=== PATIENT | male | born 1950 | race Caucasian/White ===

== ENCOUNTER 2025-07-08 18:05 | Emergency (ER) | payer MEDICARE, OTHER, SELFPAY ==
[2025-07-08 18:08] VITALS: BP 119/72; PULSE 79; RESP 20; TEMP 36.4; O2SAT 99
--- OUTSIDE RECORDS SUMMARY | 2025-07-08 18:12 | XMS_ITS | Encounter Summary ---
Author Organization [facility] Address [address] [place] [address] Care Team Providers Care Online Activist Name Role Phone Melinda Mcgowan MD Primary Care Provider + [phone] Jax Lara MD Unavailable [phone] Renata Lawson MD Unavailable [phone] Mei Bradford MD Unavailable Rodney Buckley OD Unavailable Marlee Herman MD Unavailable [phone] Gabriel Felix MD Unavailable [phone] John Luo MD Unavailable [phone] Florentino Jacobs MD Unavailable [phone] Encounter Details Date Type Department Care Team (Latest Contact Info) Description 05/23/2025 Results Follow-Up [place] [employer] at [address] [place] [id number] Jesus Manuel Sams MA US Groin Pseudo Duplex Right Social History Tobacco Use Types Packs/Day Years Used Date Smoking Tobacco: Every Day Cigarettes 0.7 59.6 Started: 11/22/1965 Passive Smoke Exposure: Current Smokeless Tobacco: Never Alcohol Use Standard Drinks/Week Comments Not Currently 0 (1 standard drink = 0.6 oz pur e alcohol) occassion glass of wine AUDIT-C Answer Date Recorded Q1: How often do you have a drink containing alc ohol? Monthly or less 05/03/2025 Q2: How many drinks containi ng alcohol do you have on a typical day when you are drinking? 1 or 2 05/03/2025 Q3: How often do you have si x or more drinks on one occasion? Never 05/03/2025 PHQ-2 Answer Date Recorded PHQ-2 Total Score (If total score is 3 or more points, staff should administer the PHQ-9) 0 05/03/2025 Personal Safety Answer Date Recorded Have you ever been in or are you currently in a harmful physical or emotional relationship or is someone making you feel afraid or unsafe? 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 Author [facility] No Clair Reynoso, ELYSE Note: Walk, ride motorcycle, golf with minimal to no pain. documented as of this encounter Visit Diagnoses Not on filedocumented in this encounter Care Teams Online Activist Relationship Specialty Start Date End Date Melinda Mcgowan MD PCP - General 02/19/17 Jax Lara MD [address] [place] [address] [address] [place] [id number] Urology 05/15/17 Renata Lawson MD [address] [facility] [address] [facility] [address] [place] [address] Gastroenterology 05/17/17 Mei Bradford MD [address] [facility] [place] [address] Neurology 05/17/17 Rodney Buckley, [place] [address] [place] [address] Optometry 10/26/17 Marlee Herman MD [address] [place] [address] Surgeon Cardiothoracic Surgery 07/04/21 Gabriel Felix MD [address] [place] [address] [address] [place] [address] Anesthesiologist Pain Management 10/14/22 John Luo MD [address] [place] [address] Referring Physician Ophthalmology 05/03/25 Florentino Jacobs MD [address] [place] [address] [address] [place] [address] Consulting Physician Cardiology 05/03/25 documented as of this encounter
--- OUTSIDE RECORDS SUMMARY | 2025-07-08 18:12 | XMS_ITS | Clinical Summary ---
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 Name Role Phone Melinda Mcgowan MD Primary Care Provider Jax Lara MD Unavailable [phone] Renata Lawson MD Unavailable [phone] Mei Bradford MD Unavailable Rodney Buckley OD Unavailable Marlee Herman MD Unavailable [phone] Loan Felix MD Unavailable John Luo MD Unavailable [phone] Namrata Jacobs MD Unavailable [phone] Allergies Active Allergy Reactions Criticality Noted Date Comments Spironolactone Other (See comments) Low 06/24/2018 The bilateral tender enlarged breast with nodules resolved off the Aldactone [id number]-[id number]-Evi moterol Other (See comments) Low 09/16/2023 Does not tolerate steroid inhalers Eplerenone Other (See comments) Low 09/01/2019 Worsening gynecomastia, fatigue, lightheaded after 3 days of taking this Gabapentin Other (See comments) Low 01/04/2023 Weight gain, bad dreams Lisinopril Headache Low 06/24/2018 Waldo Juice Anaphylaxis High Oxycodone Syncope High 10/11/2023 Penicillins Hives Medium Medications tobramycin-dexAME THasone (TOBRADEX) ophthalmic solution SHAKE LIQUID AND INSTILL 1 DROP IN RIGHT EYE FOUR TIMES DAILY. START DROPS AFTER SURGERY Active albuterol 2.5 mg /3 mL (0.083 %) nebulizer solutionIndicatio ns:COPD with asthma (HCC) Take 3 mL (2.5 mg total) by nebulization 4 (four) times a day as needed for wheezing or shortness of breath 75 mL 2 Active albuterol HFA (PROVENTIL HFA,VENTOLIN HFA,PROAIR HFA) 90 mcg/actuation inhalerIndication s:COPD with asthma (HCC),Nicotine use disorder Inhale 2 puffs every 6 (six) hours as needed for wheezing Dispense cheapest brand or generic covered by insurance 1 each Active aspirin 81 mg chewable tabletIndications :Ischemic heart disease due to coronary artery obstruction (HCC) Take 1 tablet (81 mg total) by mouth daily 90 tablet Active atorvastatin (LIPITOR) 80 mg tabletIndications :Ischemic heart disease due to coronary artery obstruction (HCC),Multiple-ty pe hyperlipidemia Take 1 tablet (80 mg total) by mouth nightly 90 tablet Active cholecalciferol (VITAMIN D-3) 2000 unit capsuleIndication s:Nephrotic syndrome Take 1 capsule (2,000 Units total) by mouth daily before breakfast 90 capsule [address] (CYMBALTA) 60 mg capsuleIndication s:Mood disorder,Chronic pain disorder,Lumbar foraminal stenosis Take 1 capsule (60 mg total) by mouth daily 90 capsule Active fexofenadine (LANE) 180 mg tabletIndications :Chronic rhinitis Take 1 tablet (180 mg total) by mouth daily as needed (allergies) Spring until May 25, July until 025 Active fluticasone propionate (FLONASE) 50 mcg/actuation nasal sprayIndications: Chronic rhinitis Administer 2 sprays into each nostril daily 025 Active montelukast (SINGULAIR) 10 mg tabletIndications :Chronic rhinitis Take 1 tablet (10 mg total) by mouth nightly 90 tablet 3 025 Active tirzepatide (Mounjaro) 10 mg/0.5 mL pen injector injectionIndicati ons:Type 2 diabetes mellitus with stage 3a chronic kidney disease, without long-term current use of insulin ([facility]) Inject 0.5 mL (10 mg total) under the skin every 7 days 6 mL 2 025 Active isosorbide mononitrate ER (IMDUR) 30 mg 24 hr tabletIndications :Ischemic heart disease due to coronary artery obstruction (HCC) Take 1 tablet (30 mg total) by mouth daily 30 tablet 1 025 2024 Active clopidogreL (PLAVIX) 75 mg tabletIndications :Ischemic heart disease due to coronary artery obstruction (HCC) Take 1 tablet (75 mg total) by mouth daily 90 tablet 3 025 Active ezetimibe (ZETIA) 10 mg tabletIndications :Ischemic heart disease due to coronary artery obstruction (HCC),Multiple-ty pe hyperlipidemia Take 1 tablet (10 mg total) by mouth daily 90 tablet 3 025 Active eplerenone (INSPRA) 25 mg tabletIndications :Ischemic heart disease due to coronary artery obstruction (HCC),Nephrotic syndrome Take 1 tablet (25 mg total) by mouth daily 90 tablet 1 025 Active famotidine (PEPCID) 20 mg tabletIndications :Chronic GERD TAKE 1 TABLET TWICE A DAY 180 tablet 025 Active carvediloL (COREG) 12.5 mg tabletIndications :Type 2 diabetes mellitus with stage 3a chronic kidney disease, without long-term current use of insulin (HCC),Nephrotic syndrome,Ischemic heart disease due to coronary artery obstruction (HCC) TAKE 1 TABLET TWICE A DAY WITH MEALS (DOSE DECREASE) 180 tablet 025 Active famotidine (PEPCID) 20 mg tabletIndications :Chronic GERD Take 1 tablet (20 mg total) by mouth 2 (two) times a day 180 tablet 3 025 2024 Discontinued carvediloL (COREG) 12.5 mg tabletIndications :Type 2 diabetes mellitus with stage 3a chronic kidney disease, without long-term current use of insulin (HCC),Nephrotic syndrome,Ischemic heart disease due to coronary artery obstruction (HCC) Take 0.5 tablets (6.25 mg total) by mouth 2 (two) times a day with meals 90 tablet 3 025 2024 Discontinued Active Problems Problem Noted Date Diagnosed Date Hematoma of injection site 06/07/2025 Hospital discharge follow-up 05/08/2025 Assessment & Plan (05/08/2025 9:53 AM CDT): Hospitalized at [facility] 05/03/25-05/04/25 for unstable angina Cardiology consulted (following outpatient) Hx: s/p CABG x 2 05/03/25: cardiac catheterization , EKG 05/04/25: transthoracic echo Medication list updated for accuracy Outpatient follow ups w/ consulting teams scheduled Aortic stenosis 05/03/2025 Overview (05/03/2025): Found on heart catheterization by Dr. Jacobs for unstable angina 05/03/2025 Aortic stenosis with 25-30 mm peak to peak gradient across the valve. Severe limited leaflet mobility by ascending aortography Abdominal aortography showed normal size iliac vessels with heavy calcification abdominal aorta Mynx to right groin Plan His grafts remain patent. There was no high-grade lesions to warrant intervention His aortic stenosis could have worsened. We will obtain echo in a.m. Chronic pain disorder 10/12/2024 Dysphagia 02/19/2023 Assessment & Plan (08/12/2023 11:54 AM CDT): Continue Pepcid 20 mg twice daily 50 ounces of caffeine free and soda free fluid daily Use humidifier on Max setting on CPAP Modified barium swallow study, if negative will place referral to GI for EGD Assessment & Plan (02/19/2023 2:40 PM CDT): Likely related to lymphadenitis, see plan above. Type 2 diabetes mellitus with chronic kidney dis ease 01/04/2023 Assessment & Plan (01/18/2024 2:16 PM WIRE WEAVER CLOTH): Last HbA1c in August 5.6. no acute symptoms or findings on exam. Down a total of 23 lbs since starting mounjaro. Due to sporadic abdominal cramping will refill at 7.5mg dose. Continue current regimen and heart healthy diet/exercise. Keep follow and repeat labs in 2 months. Assessment & Plan (02/19/2023 2:20 PM CDT): Tolerating 2.5 mg mounjaro dosing with no issues. Admits decrease in cravings. Has lost 4 lbs in the last month. No acute findings on exam. Will increase to 0.5mg dose. Continue low carb diet. Follow in 1 month. Assessment & Plan (02/01/2023 12:36 PM CDT): Presents today for mounjaro teaching and initiation. Confirmed understanding using teach back method. HbA1c 6.9, no strict exercise routine. Attempting to follow low carb diet. No acute findings on exam. BMI up to 42.1. Educated on low carb diet and portion control. Follow up 1month. S/P CABG x 2 09/07/2022 Lumbar foraminal stenosis 05/19/2022 Overview (08/25/2022): MRI lumbar scan by [facility] May 2022 (+) facet arthropathy right L4-5, left L5-S1 L4-5: Annular disc bulge with left eccentric central-left subarticular disc protrusion with tiny annular fissure. Bilateral hypertrophic facet arthropathy, noting slight fluid in the left facet joint suggestive of facet synovitis. Moderate right and mild left neural foraminal stenosis, noting combination of inferior pedicular surface, disc, and arthropathic facet contact with the exiting right and slight disc contact with the exiting left L4 nerve roots. L5-S1: Annular disc bulge. Bilateral hypertrophic facet arthropathy, noting slight fluid in the left facet joint suggestive of facet synovitis. Mild-moderate left and mild right neural foraminal stenosis, noting combination of inferior pedicular surface, disc, and arthropathic facet variable contact with the exiting bilateral L5 nerve roots. 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 06/04/2022 12:43 PM Oscar Hilton M.D. Stage 3a chronic kidney disease 06/26/2021 Assessment & Plan (07/03/2021 5:13 PM CDT): MAIN on CKD 3 Cr today 1.5 -continue lasix 40mg IV bid -Dr. Herman ordered metolazone 10mg x 1 today -Avoid nephrotoxins as able -Daily weights -Monitor intake and output -Daily labs Assessment & Plan (07/02/2021 5:00 PM CDT): MAIN on CKD 3 Cr today 1.58 -start lasix 40mg IV bid -Avoid nephrotoxins as able -Daily weights -Monitor intake and output -Daily labs Assessment & Plan (06/27/2021 10:09 PM CDT): -Admission CMP -Avoid nephrotoxins as able -Daily weights -Monitor intake and output -Daily labs Nephrotic syndrome 05/03/2019 Overview (07/14/2019): Biopsy (+) for membranous GN followed by FELIBERTO Vaca Assessment & Plan (01/03/2020 9:50 AM WIRE WEAVER CLOTH): Patient has been follow with nephrology and had recent visit at which time his lasix dose was increased and eplerenone added. We are awaiting recent labs from their office. Mood disorder 12/23/2017 Assessment & Plan (01/03/2020 10:58 AM WIRE WEAVER CLOTH): He remains on cymbalta, but states that he still suffers with issues of depression. Suggested with patient the addition of Wellbutrin, but he has taken in the pst and not tolerated. He wishes to discuss more and his upcoming follow up with Dr. Mcgowan. Ischemic heart disease due to coronary artery ob struction 10/23/2017 Overview (07/16/2021): Uneventful hospital course after 06/29/2021 for CABG x 2 (COVARRUBIAS to LAD, SVG to OM) by Dr. Herman. Cardiac catheterization on 06/27/21 before heart bypass = RCA with diffuse 25% proximal stenosis followed by 40% focal mid lesion, left mainvery tight 95% to 99% distal stenosis with diffuse stenosis of 50%, LAD with diffuse 25% mid stenosis, 40% mid circumflex, and EF 60% to 65%. Unstable angina June 2021 [facility] evaluation (+) stress,coronary angiogram today 06/27/2021, which showed main main left disease. Transfered to [facility] for possible CABG. Stress test (-) November 25, 2017 TECHNIQUE: Intravenous Lexiscan was administered by cardiology to achieve stress. 10.7 mCi technetium 99m Myoview was injected at rest, followed by 31.8 mCi injected at peak stress. FINDINGS: There is a normal distribution of radiopharmaceutical activity throughout the left ventricular myocardium on both rest and stress images. Gated images demonstrate normal ventricular wall thickening. The left ventricular ejection fraction is 73%. Impression 1. NORMAL REST AND STRESS LEFT VENTRICULAR PERFUSION. 2. NORMAL LEFT VENTRICULAR WALL MOTION. 3. NORMAL LEFT VENTRICULAR EJECTION FRACTION. Electronically signed by: Adams Meadows M.D. Last Resulted: 11/25/17 13:03 ASVD Is Confirmed on CT abdomen during evaluation of abdominal pain February 2017 IMPRESSION: 1. 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 2. FATTY INFILTRATION OF THE LIVER. 3. DIFFUSE VASCULAR CALCIFICATION. 4. SIGMOID DIVERTICULOSIS. Interpreting Physician: DR BURAK RIVAS M.D. Read on: Mar 03 2017 2:53P Transcribed by: aamir On: Mar 03 2017 7:58P Assessment & Plan (01/18/2024 2:20 PM WIRE WEAVER CLOTH): BP stable in office today on current therapy. No acute findings on exam. ECHO from 10/2023 in chart. Labs show stable CKD. Continue current regimen and low salt diet. Hx of adenomatous colonic polyps 06/14/2017 Overview (06/14/2017): [facility]: EGD with acid reflux erosive gastritis May 2017 [facility]: Adenomatous colon polyps (+) 2001, (+) 2006, (-) [address] Lawson for colonoscopy May 2017 History of stroke without residual deficits 04/23 Overview (05/15/2017): January 2014 lacunar stroke. 40-60% carotid stenosis. Multiple cardiac risk factors addressed once again at that time. History of prostate cancer 05/15/2017 Overview (10/23/2017): Diagnosis December 2014 with Adams score 7 T2 PN 0 M 0 stage II INDICATION FOR PROCEDURE: The patient is a 65-year-old gentleman who has organ- confined prostate cancer, a [facility] 3+4 adenocarcinoma of the prostate in 4 of 12 biopsy cores. He was taken to the operating room for robotic prostatectomy with pelvic lymph node dissection. PROCEDURE PERFORMED: 1. Robotic-assisted laparoscopic prostatectomy. 2. Robotic-assisted laparoscopic bilateral pelvic lymphadenectomy. 3. Robotic assisted laparoscopic Dr. Igor Chowdary. History of kidney stones 05/15/2017 Overview (05/15/2017): Diagnosed in emergency room July 2014 Chronic GERD 05/15/2017 Overview (10/23/2017): [facility]: EGD with acid reflux erosive gastritis May 2017 [facility]: Adenomatous colon polyps (+) 2001, (+) 2006, (-) 2008 Obstructive sleep apnea 04/07/2014 Overview (01/28/2023): (+) VÍCTOR and nocturnal hypoxemia confirmed January 2023 referred back to sleep Medicine, not compliant with his CPAP Impression: 1. Reduced sleep efficiency. 2. Severe obstructive sleep apnea syndrome. 3. 34.3 minutes of oxygen saturation less than 88% documented. 4.Consider Positive Airway Pressure (PAP) devices such as continuous PAP (CPAP), auto-adjusting PAP (APAP), and bi-level PAP (Bi-PAP). 5. CPAP titration to determine optimal pressure required to alleviate sleep disordered breathing 6. Sleep hygiene should be reviewed to assess factors that may improve sleep quality. 7. Weight management and regular exercise should be initiated or continued 8. Avoid alcohol sedatives and other FIXING MACHINE OPERATOR depression that may worsen sleep apnea and disrupt normal sleep architecture 9. Patients with sleep apnea may have significant daytime hypersomnolence. If that is the case, driving or handling heavy machinery should be avoided until the apnea and excessive sleepiness have resolved. Referred to Dr. Bradford 04/2017-- never went to the appointment CPAP titration study 2013 confirmed BiPAP ..PLAN: 1) Nasal BiPAP at a pressure of 21/16 cm of water. During this titration, thefollowing equipment was used - medium Quattro full face mask and heatedhumidity. 2) Close clinical followup is needed to ensure treatment compliance andremission of daytime impairment. 3) The patient has periodic limb movements, but did not cause significant sleep fragmentation. Treated by Dr. Reina. Diagnosed in 2005, refused care. The baseline oxygen saturation was 94.4% with the lowest oxygen saturation documented at 84%. During the current study moderate obstructive sleep apnea syndrome was documented with an apnea/hypopnea index of 18.6. IMPRESSION AND PLAN: This overnight polysomnogram demonstrates evidence of moderate obstructive sleep apnea syndrome. In addition, there is evidence of periodic limb movement disorder. It is recommended that the patient undergo a repeat study with a CPAP titration. If the patient remains symptomatic and still has evidence of periodic limb movement disorder on the repeat study, he may benefit from specific treatment to manage the periodic limb movements. Ashlee Rudolph M.D. Assessment & Plan (07/03/2021 5:11 PM CDT): -patient diagnosed with moderate VÍCTOR in 2005 per [facility] records with CPAP titration in 2013 -patient currently does not use CPAP -VÍTCOR precautions Assessment & Plan (07/01/2021 10:00 AM CDT): -patient diagnosed with moderate VÍCTOR in 2005 per [facility] records with CPAP titration in 2013 -patient currently does not use CPAP -VÍCTOR precautions Assessment & Plan (06/28/2021 10:31 AM CDT): -patient diagnosed with moderate VÍCTOR in 2005 per [facility] records with CPAP titration in 2013 -patient currently does not use CPAP COPD with asthma 04/07/2014 Overview (08/21/2018): Images from the original note were not included. Spirometry 2012 Assessment & Plan (07/03/2021 5:11 PM CDT): -Takes Advair Diskus and PRN albuterol inhaler at home -Continue Albuterol MDI -Continue aggressive pulmonary toilet -add mucinex for productive cough (clear phlegm) -continue diuresis Assessment & Plan (07/02/2021 4:57 PM CDT): -Takes Advair Diskus and PRN albuterol inhaler at home -Continue Albuterol MDI -Continue aggressive pulmonary toilet -add mucinex for productive cough (clear phlegm) -IV lasix Assessment & Plan (06/27/2021 9:59 PM CDT): -Takes Advair Diskus and PRN albuterol inhaler at home -Continue home meds or formulary alternative -PFTs ordered Assessment & Plan (01/03/2020 9:47 AM WIRE WEAVER CLOTH): With acute exacerbation in setting of most likely viral illness. We will do CXR to r/o any acute cardiopulmonary process. He was encouraged to begin using his nebulizer routinely every 4-6 hours. He was also sent rx for prednisone which he will complete. He was instructed if he should have worsening symptoms he would need to go to the ER for further evaluation Nicotine use disorder 04/07/2014 Overview (12/31/2021): JUNE [address] SCAN DUE JUNE 2022 2. Sub-6 mm pulmonary nodules within the right middle and lower lobes. Per Fleischner guidelines, if the patient is at low risk for lung cancer, no follow-up imaging is needed. If the patient is at high risk for lung cancer, follow-up CT in 12 months could be performed. Assessment & Plan (02/01/2023 12:43 PM CDT): Not ready to quit at this time. Taking Wellbutrin with no decrease in cravings. Intermittent wheezing on exam. Keep yearly chest CT screenings and follows with pulm. Assessment & Plan (07/03/2021 5:12 PM CDT): Continue abstinence Offer cessation counseling Nicotine patch Assessment & Plan (07/02/2021 5:01 PM CDT): Continue abstinence Offer cessation counseling Nicotine patch Assessment & Plan (06/28/2021 10:29 AM CDT): -Patient requesting nicotine patch -Nicotine patch ordered Assessment & Plan (01/03/2020 9:46 AM WIRE WEAVER CLOTH): Cessation encouraged. Chronic rhinitis 04/07/2014 Overview (02/26/2017): Rhinitis Multiple-type hyperlipidemia 04/07/2014 Overview (02/26/2017): Hyperlipemia, mixed Assessment & Plan (07/03/2021 5:11 PM CDT): POA -Continue home Atorvastatin -Low fat diet Assessment & Plan (07/01/2021 9:59 AM CDT): POA -Continue home Atorvastatin -Low fat diet Assessment & Plan (06/27/2021 9:54 PM CDT): -Lipid panel on admission -Continue home atorvastatin Resolved Problems Problem Noted Date Diagnosed Date Resolved Date Unstable angina 05/03/2025 06/07/2025 Assessment & Plan (05/08/2025 1:20 PM CDT): Acute on chronic, stable Denies pain today No change in medications; list updated for accuracy Follows w/ Cardiology; next appointment 06/06 Goal: per cardiology Pseudofolliculitis 02/26/2025 Assessment & Plan (02/26/2025 2:15 PM CDT): Acute, stable Differential diagnoses: Pseudofolliculitis v folliculitis v abscess No ingrown hair on exam, no fluctuance with palpation on exam Current meds: None Today's Plan: No medications initiated today; no evidence of infectious process on exam Encourage patient to continue to shower daily, keep scalp clean and dry Defer topical antibiotic as there is no infectious process at this time Lab/imaging orders today: None Call in the interim with any concerns Encounter for colonoscopy du e to history of adenomatous colonic polyps 09/22/2024 05/03/2025 Annual physical exam 09/22/2024 025 Class 1 obesity with alveola r hypoventilation, serious comorbidity, and body mass index (BMI) of 33.0 to 33.9 in adult 01/18/2024 05/03/2025 Submental lymphadenitis 02/19/202304/23 Assessment & Plan (02/19/2023 2:40 PM CDT): Symptoms for 2 days. Afebrile. Mild difficulty swallowing, no choking or drooling. One single node on left submental area, soft mobile, mildly tender. Mild gingivitis, no other abnormalities on exam. Likely dental abscess. Rxd Clindamycin as directed. Mouthwash twice daily. Tylenol/ibuprofen as needed. Call if symptoms not gone by end of clinda dosing. Lumbar radiculopathy 02/05/2023 023 New onset type 2 diabetes mellitus 01/04/2023 02/01/2023 jail (current) use of opiate analgesic 10/20/2022 05/11/2023 COPD with acute exacerbation 09/04/2022 05/11/2023 Assessment & Plan (03/24/2023 1:16 PM CDT): Runny nose and cough for 3 weeks. Tested negative for COVID at home. Had CXR and blood work done before visit today. CXR was unremarkable. Dr. Meier started him on Breztri on 01/26/23 and patient states, it's not helping at all. using albuterol nebs nightly. Lungs clear on exam today, upper airway wheezing noted especially with cough. No other acute exam findings. Rxd Prednisone burst as directed. Continue mucinex. Push fluids. Assessment & Plan (09/07/2022 10:57 AM CDT): Acute problem, improving with steroids and antibiotics, CXR on 09/04 unremarkable Patient reports improving shortness of breath, coughing, wheezing Physical examination significant for continued mild postnasal drip, mild pharyngeal erythema, bilateral serous middle ear effusions, and scattered rhonchi - physical examination improved from visit on 09/04 - no other acute findings on examination (aside from examination findings pertaining to eyelid shingles) Orders for AMS STAFF to arrange Please refer to automation and controls instructor for shingles of the eyelid Orders for Luis Fernando Taylor to arrange Continue oral and topical eye antibiotics as prescribed Continue steroids as prescribed Continue valacyclovir as prescribed Follow up with ophthalmology for shingles of the eyelid Follow up as scheduled with Dr. Mcgowan or sooner if necessary Assessment & Plan (09/04/2022 4:36 PM CDT): Acute problem, times 3-4 days Increased shortness of breath, coughing, sputum production - increased used of albuterol inhaler and as needed nebulizer Physical examination significant for nasal congestion, rhinorrhea, postnasal drip, mild pharyngeal erythema, bilateral serous middle ear effusions, scattered rhonchi, scattered expiratory wheezes Vital signs stable Orders for AMS STAFF to arrange Schedule follow up in office with me on Wednesday at 1000 for follow up on preseptal cellulitis and COPD exacerbation Orders for Luis Fernando Taylor to arrange Continue Mucinex Start levofloxacin as ordered - complete the entire course Start prednisone as ordered complete entire course Can take acetaminophen for pain Continue inhalers and nebulizer as ordered Monitor for achilles tendon pain/heel pain as this can occur as a side effect of the antibiotics Go to ER on Wednesday if eye is not improving OR if vision in right eye starts worsening OR if right eye movements become restricted - patient verbalized understanding Follow up in office on Wednesday for re-evaluation Shingles of eyelid 09/04/2022 3 Assessment & Plan (09/07/2022 10:38 AM CDT): Acute problem since the evening of 09/02 or the morning of 09/03 Initially thought to be preseptal cellulitis due to early presentation of disease - patient was prescribed oral levofloxacin 500mg PO daily times 10 day Patient presented to ER on Wednesday, 09/06 per provider recommendation if not improving with antibiotics - patient presented with vesicular rash on right protestant with complaints of scalp pain in addition to right eyelid swelling, also had new onset yellow discharge from right eye - diagnosed with herpes zoster and bacterial conjunctivitis and given valacyclovir and ophthalmic tobramycin prescriptions Physical examination significant for continued erythema and swelling of right upper/lower eyelids, mild conjunctival injection, scabbed lesion on right protestant - no other acute findings on examination Orders for AMS STAFF to arrange Please refer to automation and controls instructor for shingles of the eyelid Orders for Luis Fernando Taylor to arrange Continue oral and topical eye antibiotics as prescribed Continue steroids as prescribed Continue valacyclovir as prescribed Follow up with ophthalmology for shingles of the eyelid Follow up as scheduled with Dr. Mcgowan or sooner if necessary Assessment & Plan (09/04/2022 4:36 PM CDT): Acute problem, present since the evening of 09/02 or the morning of 09/03 Patient reports mild redness and swelling of upper and lower eyelid of the right eye (upper > lower) - denies vision changes, pain with eye movement, exudate, fever, chills Physical examination significant for mild erythema of upper/lower eyelids of right eye, swelling of upper/lower eyelids of right eye (upper > lower), EOM intact, PERRLA, no conjunctival involvement - no other acute findings on examination Discussed the importance of taking antibiotics as soon as possible and as prescribed to treat infection as worsening of the infection due to delayed treatment could lead to rapid involvement of deeper intracranial structures and significant complications - patient verbalized understanding Orders for AMS STAFF to arrange Schedule follow up in office with me on Wednesday at 1000 for follow up on preseptal cellulitis and COPD exacerbation Orders for Luis Fernando Taylor to arrange Continue Mucinex Start levofloxacin as ordered - complete the entire course Start prednisone as ordered complete entire course Can take acetaminophen for pain Continue inhalers and nebulizer as ordered Monitor for achilles tendon pain/heel pain as this can occur as a side effect of the antibiotics Go to ER on Wednesday if eye is not improving OR if vision in right eye starts worsening OR if eye movements become restricted - patient verbalized understanding Follow up in office on Wednesday for re-evaluation Hyperkalemia 08/05/2022 08/25/2022 Assessment & Plan (08/05/2022 3:00 PM CDT): Potassium upon hospital dc on 07/27/22 was 5.1. will repeat BMP today. Hypertensive urgency 07/27/2022 022 Acute on chronic diastolic heart failure 07/27/2022 08/25/2022 Assessment & Plan (08/05/2022 2:59 PM CDT): Presents for hospital follow up after NSTEMI 2 weeks ago. Intermittent dizziness reported after starting Isosorbide. BPs at home running 150-170s over 90-100s. BP today stable at 128/84. Denies further chest pain, palpitations, or worsening SOB (reports intermittent wheezing is normal with his COPD). Continue Coreg 25mg BID, Inspra 37.5mg daily, and Imdur 30mg daily as ordered. Continue to monitor BP at home and record daily around midday. Keep follow ups as scheduled with Dr. mcgowan on 08/25/22 annd with Cardiology on 09/07/22. Call with any changes or concerns. 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 05/15/2022 05/11/2023 Carotid artery disease 06/28/202107/16 Assessment & Plan (07/03/2021 5:10 PM CDT): -Patient had carotid dopplers in 2013 showing LICA 64% and ALICJA 44% --continue ASA, Statin Assessment & Plan (07/01/2021 10:05 AM CDT): -Patient had carotid dopplers in 2013 showing LICA 64% and ALICJA 44% --continue ASA, Statin Assessment & Plan (06/28/2021 10:32 AM CDT): -Patient had carotid dopplers in 2013 showing LICA 64% and ALICJA 44% -carotid dopplers ordered Coronary artery disease invo lving [place] coronary artery 06/27/2021 07/14/2021 Assessment & Plan (07/03/2021 5:14 PM CDT): -s/p CABG x2 -Continue aspirin and atorvastatin -increase coreg -Monitor on telemetry -wires out -continue IV lasix + 1 dose of metolazone 10mg today -PT/OT -bowel regimen -SQH -discharge planning Assessment & Plan (07/02/2021 4:58 PM CDT): -s/p CABG x2 -Continue aspirin, atorvastatin, and carvedilol -Monitor on telemetry -pull wires today -start Lasix IV 40mg IV BID + K -PT/OT -bowel regimen -SQH -discharge planning Assessment & Plan (06/28/2021 10:35 AM CDT): -Stress test 06/26 - abnormal myocardial perfusion study, reversible 15% mild to moderate severity anteroseptal and apical defect indicating ischemia in the LAD distrubution, another 10% in this distribution appears fixed and may be due to infarction or hibernating myocardium, mild hypokinesis and incomplete thickening at the anteroseptal wall, normal EF -Cardiac cath 06/27 - RCA with diffuse 25% proximal stenosis followed by 40% focal mid lesion, left main with diffuse stenosis of 50% with a very tight 95% to 99% distal stenosis, LAD with diffuse 25% mid stenosis, 40% mid circumflex, EF 60% to 65% -troponin - negative -Continue aspirin, atorvastatin, and carvedilol -Continue heparin gtt -PRN nitro tabs -Monitor on telemetry -Work up for CABG including carotid dopplers, vein mapping, PFTs, TTE here, CT CAP w/o Obesity (BMI 30-39.9) 06/27/20212024 Assessment & Plan (07/03/2021 5:10 PM CDT): Admission BMI 38.31 Bariatric equipment as necessary Low fat diet Assessment & Plan (07/01/2021 10:04 AM CDT): Admission BMI 38.31 Bariatric equipment as necessary Low fat diet Assessment & Plan (06/28/2021 10:33 AM CDT): -Admission BMI 38.31 -Bariatric equipment as necessary -low fat diet Acute chest pain 06/25/2021 08/25/2022 Wheezing 11/18/2020 07/16/2021 Assessment & Plan (11/18/2020 9: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 He states that he does get this way usually once a year within the time frame from Sep to Dec. He has been using his inhalers and his nebs as prescribed. Scattered exp wheezes heard throughout lung ennis, with NO lower extremity edema noted today. We will get a chest x-ray today to R/O infections process or fluid overload. He will start prednisone today and do 40mg x 2 days, then 20mg for 2 days, then 10mg x 2 days, then stop. He will f/u with me in 7-10 days. Palpitations 10/21/2020 08/25/2022 Fever and chills 01/03/2020 04/30/2020 Assessment & Plan (01/03/2020 9:53 AM WIRE WEAVER CLOTH): Patient presents with c/o subjective fever and body aches. He will have flu swab done. He was encouraged to rest, increase his fluids and use tylenol for pain or fevers. He is to call or go to ED with worsening or persistent symptoms. Gynecomastia, male 01/03/2020 0 Assessment & Plan (01/03/2020 9:52 AM WIRE WEAVER CLOTH): Chronic. Symptoms have not changed since the addition of eplerenone. He has had imaging in the past that was benign. Will monitor ED (erectile dysfunction) of organic origin 10/23/2017 08/25/2022 Stasis dermatitis of both legs 06/19/2017 10/23/2017 Lower abdominal pain 06/14/2017 017 Overview (06/14/2017): IMPRESSION: 1. 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 2. FATTY INFILTRATION OF THE LIVER. 3. DIFFUSE VASCULAR CALCIFICATION. 4. SIGMOID DIVERTICULOSIS. Interpreting Physician: DR BURAK RIVAS M.D. Read on: Mar 03 2017 2:53P Transcribed by: aamir On: Mar 03 2017 7:58P Karadaghy: EGD with acid reflux erosive gastritis May 2017 Allendorph: Adenomatous colon polyps (+) 2001, (+) 2005, (-) 2008 Chronic pansinusitis 05/15/2017 017 Overview (05/15/2017): Condition confirmed on head CT scan April 02, 2014 at [facility] during an evaluation for stroke Periodontal disease 04/07/2014 08/25/20 22 Overview (02/26/2017): Periodontal disease Chronic right-sided low back pain with right-sided sciatica 05/11/2023 Assessment & Plan (02/01/2023 12:40 PM CDT): Chronic problem, uncontrolled with pain mgt interventions. Currently taking Mehama PRN and duloxetine BID with no relief. Failed gabapentin. R SI joint tenderness but negative SLR. Will trial Tizanidine as needed. Recommended aspercreme with lidocaine use. Gentle stretching encouraged. Heat/ice as tolerated. Follow 1 month. Assessment & Plan (08/05/2022 3:05 PM CDT): Presents for hospital follow up from [facility] c/o continued R leg pain. Patient does not believe pain is related to lumbar bulging disc. Is seeing Dr. Felix for pain management and receiving absolutely none relief from spinal injections. He wants to give Dr. Felix one more try at his appointment on 09/02/22 but if he is unwilling to change treatment course patient requesting referral to Orthopedics. Mild weakness with R leg noted on exam, no acute findings. Patient will call office if he wants to persue Ortho referral. Follow up with Dr. mcgowan as scheduled in 2 weeks. Assessment & Plan (05/08/2022 7:53 AM CDT): Patient presents with low back pain that is radiating to the rt thigh. Pain has been progressing over the last 1-2 weeks and limiting his ability to be mobile. He was seen in the ER this week and CT of the lumbar spine multilevel degenerative changes. On exam he has tenderness with palpation of lower back into buttock and pain with straight leg raises. There was mention on CT of 60-70% stenosis of bilateral femoral arteries. This may be contributing to pain, he however, has palpable strong distal pulses. Therefore, most likely pain is d/t musculoskeletal etiology. We will begin muscle relaxer and tramadol. Encouraged PT but patient declined. We will refer to pain management as well. Will follow up in 2 weeks or sooner if needed. If persistent symptoms despite pain management will refer to Dr. Jacobs to evaluate for PAD as cause. Encounters Date Type Department Care Team Description 06/27/2025 Results Follow-Up [place] [facility] at [facility] [address] [place] [address] Jesus [address] Sams MA CT Abdomen Pelvis WO Contrast 06/20/2025 10:12 AM CDT - 06/20/2025 11:59 PM CDT Hospital Encounter [address] [address] Enlarged lymph nodes Discharge Disposition: Discharge to home or self care 06/19/2025 Telephone [facility] [address] [place] [address] [address] [place] [address] Melinda Mcgowan MD Dental Clearance 06/19/2025 Telephone [facility] [address] [place] [address] Julian Mensah 06/07/2025 11:30 AM CDT Office Visit [facility] [address] [place] [address] Flora Garcia NP Hematoma of injection site, initial encounter (Primary Dx); Type 2 diabetes mellitus with stage 3a chronic kidney disease, without long-term current use of insulin (HCC) 06/07/2025 11:00 AM CDT Office Visit [facility] [place] [address] [place] [phone] Robby Meier MD Centrilobular emphysema (HCC) (Primary Dx); Nicotine dependence, cigarettes, uncomplicated; VÍCTOR (obstructive sleep apnea); Nonrheumatic aortic valve stenosis 06/06/2025 9:45 AM CDT Office Visit [place] [facility] at [address] [place] [phone] Sara Mendoza NP Ischemic heart disease due to coronary artery obstruction (HCC) (Primary Dx); Aortic valve stenosis, etiology of cardiac valve disease unspecified; Primary hypertension; Multiple-type hyperlipidemia; Tobacco dependence 06/06/2025 Telephone [facility] [address] [place] [address] Melinda Mcgowan MD 05/23/2025 Results Follow-Up [place] [facility] at [address] [place] [phone] Jesus Manuel Sams MA US Groin Pseudo Duplex Right 05/23/2025 Orders Only [place] [facility] at [address] [place] [phone] Namrata Jacobs MD Lymphadenopathy; Enlarged lymph nodes 05/21/2025 Telephone [facility] [address] [place] [address] Melinda Mcgowan MD 05/14/2025 Telephone [facility] [address] [place] [address] Magali Finley RN 05/13/2025 Orders Only [facility] [address] [place] [address] Melinda Mcgowan MD COPD with asthma (HCC); Nicotine use disorder; Ischemic heart disease due to coronary artery obstruction (HCC); Multiple-type hyperlipidemia; Type 2 diabetes mellitus with stage 3a chronic kidney disease, without long-term current use of insulin (HCC); Nephrotic syndrome; Mood disorder; Chronic pain disorder; Lumbar foraminal stenosis; Chronic GERD; Chronic rhinitis 05/10/2025 12:43 PM CDT - 05/10/2025 11:59 PM CDT Hospital Encounter [facility] [address] [place] [address] Pain in right leg; Hematoma Discharge Disposition: Discharge to home or self care 05/10/2025 Orders Only [place] [facility] at [facility] [address] [place] [phone] Michael Velasquez NP Pain in right leg (Primary Dx); Hematoma 05/09/2025 Telephone [facility] [address] [place] [address] Melinda Mcgowan MD Cardiac Cath Site lump 05/08/2025 1:00 PM CDT Office Visit [facility] [address] [place] [address] Lincoln Griggs NP Hospital discharge follow-up (Primary Dx); Unstable angina (HCC); S/P CABG x 2 05/07/2025 Telephone [facility] [address] [place] [address] Caprice Solo MA 05/03/2025 4:00 PM CDT - 05/03/2025 5:05 PM CDT Surgery [facility]atheter[facility] [address] [place] [address] Namrata Jacobs MD AORTOGRAM THORACIC S&I [id number] [[id number] (CPT )] 05/03/2025 11:07 AM CDT - 05/04/2025 12:19 PM CDT Hospital Encounter [facility] [address] [place] [address] Ta Rebolledo MD Quaizar, Huzaifa, MD Nikolic, Jelena, MD Unstable angina (HCC) (Primary Dx) Discharge Disposition: Discharge to home or self care 05/03/2025 8:30 AM CDT Office Visit [facility] [place] [facility] [address] [place] [address] Melinda Mcgowan MD Annual physical exam (Primary Dx); Unstable angina (HCC); Precordial chest pain; Type 2 diabetes mellitus with stage 3a chronic kidney disease, without long-term current use of insulin (HCC); Ischemic heart disease due to coronary artery obstruction (HCC); Multiple-type hyperlipidemia; Tobacco use disorder; COPD with asthma (HCC); Nephrotic syndrome; History of stroke without residual deficits; History of prostate cancer; Hx of adenomatous colonic polyps; Immunization counseling 04/21/2025 Results Follow-Up [facility] [address] [place] [address] Melinda Mcgowan MD Colonoscopy, Surgical pathology 04/17/2025 12:39 PM CDT Anesthesia Event [address] [address] Martell Shea MD Alexander, Jeffrey Michael, 04/17/2025 11:30 AM CDT - 04/17/2025 12:00 PM CDT Surgery [address] [address] Renata Lawson MD COLON REMOVAL SNARE 04/17/2025 10:27 AM CDT - 04/17/2025 1:38 PM CDT Hospital Encounter [address] [address] Renata Lawson MD Encounter for colonoscopy due to history of adenomatous colonic polyps; Encounter for screening colonoscopy Discharge Disposition: Discharge to home or self care 04/12/2025 Telephone [facility] at [address] [place] [phone] Hannah Kramer MA from Last 3 Months Immunizations Immunization Administration Dates Next Due Influenza, Quad, Adjuvantate d, Intramuscular 07/20/2020 Influenza, Quadrivalent, Hig h Dose, Preservative Free, Intrr 09/16/2023,09/10/2022,10/10/2021 Influenza, Quadrivalent, Spl it, Intramuscular 08/19/2018,10/26/2017 Influenza, Trivalent, High D ose, Split, Preservative Free, Intramuscular 10/12/2024,09/27/2019 Influenza, Unspecified 07/20/2020,08/19/2018 Pfizer SARS-CoV-2 Monovalent Vaccination (12+ Yrs) PURPLE 03/01/2021,02/04/2021 Pneumococcal Conjugate PCV 13 11/06/2014 Pneumococcal Conjugate Pcv20 10/12/2024 Pneumococcal Polysaccharide PPV23 08/11/2016 RSV, Bivalent, Protein Subun it Rsvpref, Diluent (Abrysvo) 09/29/2023 Tdap 06/28/2018,09/21/2010 ZOSTER Recombinant 12/11/2022,09/10/2022 Surgical History Surgery Date Site/Laterality Comments COLONOSCOPY W/ BIOPSIES AND POLYPECTOMY 06/04/2017 (+) Dr. Lawson tubular adenoma LAPAROSCOPIC RETROPUBIC PROSTATECTOMY 02/19/2015 Dr. Chowdary and Dr. Lara COLONOSCOPY W/ BIOPSIES AND POLYPECTOMY 07/15/2012 Dr. Isbell (+) tubular adenoma x2 UPPER GASTROINTESTINAL ENDOSCOPY 06/04/2017 biopsies (-) Dr. Lawson COLONOSCOPY W/ BIOPSIES AND POLYPECTOMY 09/08/2017 Dr. Lawson (+) single tubular adenoma ESOPHAGOGASTRODUODENOSCOPY 06/04/2017 Dr. Lawson (+) erosive esophagitis RENAL BIOPSY 06/02/2019 CARDIAC CATHETERIZATION CORONARY ARTERY BYPASS GRAFT 06/22/2021 - 07/22/2021 x2 COLONOSCOPY COLONOSCOPY COLONOSCOPY 04/05/2025 (+) Dr. Lawson 15 mm tubular adenoma : Re-Check 3 years CARDIAC CATHETERIZATION 05/03/2025 N/A Procedure: AORTOGRAM THORACIC S&I [id number]; Surgeon: Namrata Jacobs MD; Location: [facility] CARDIAC WEIGHT CHECKER; Service: Cardiovascular; Laterality: N/A; Medical devices from this surgery are in the Medical Devices section. CARDIAC CATHETERIZATION 05/03/2025 N/A Procedure: AORTOGRAM ABDOMINAL S&I [id number]; Surgeon: Namrata Jacobs MD; Location: [facility] CARDIAC WEIGHT CHECKER; Service: Cardiovascular; Laterality: N/A; Medical devices from this surgery are in the Medical Devices section. CARDIAC CATHETERIZATION 05/03/2025 N/A Procedure: LEFT HEART CATHETERIZATION WITH CORONARY ANGIOGRAPHY GRAFT AND WITH OR WITHOUT LEFT VENTRICULOGRAM [id number]; Surgeon: Namrata Jacobs MD; Location: [facility] CARDIAC WEIGHT CHECKER; Service: Cardiovascular; Laterality: N/A; Medical devices from this surgery are in the Medical Devices section. Medical History Medical History Date Comments Hypertension Hypertension Chronic pansinusitis 05/15/2017 Condition c onfirmed on head CT scan April 02, 2014 at [facility] during an evaluation for stroke Diverticulosis 2011 confirmed on col onoscopy Depression Asthma Obesity Periodontal disease Tinea pedis Hyperlipidemia Plantar fasciitis Adenomatous colon polyp Elevated blood sugar Low back pain Sleep apnea Prostate cancer ([facility]) Stage 3a chronic kidney disease ([facility]) 06/26/2021 Coronary artery disease invo lving [place] coronary artery 06/27/2021 Shingles of eyelid 09/04/2022 Chronic right-sided low back pain with right-sided sciatica Class 1 obesity with alveola r hypoventilation, serious comorbidity, and body mass index (BMI) of 33.0 to 33.9 in adult ([facility]) 01/18/2024 Obesity (BMI 30-39.9) 06/27/2021 Family History Medical History Relation Name Comments Hypertension Brother Aneurysm Father Cancer Father Hernia Mother Hypertension Sister Relation Name Status Comments Brother Alive Father Mother Sister Alive Social History Tobacco Use Types Packs/Day Years Used Date Smoking Tobacco: Every Day Cigarettes 0.7 59.6 Started: [birth year]/22/1965 Passive Smoke Exposure: Current Smokeless Tobacco: Never Tobacco Cessation:Ready to Q uit: Not Asked; Counseling Given: Not Answered Alcohol Use Standard Drinks/Week Comments Not Currently [...] on file Legal Sex 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 [employer]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 Gender Identity Not on file Sexual Orientation Not on file 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 Not on file Not on file Obstetrics History Last Filed Vital Signs Vital Sign Reading Time Taken Comments Blood Pressure 112/76 06/07/2025 11:52 AM CDT Pulse 72 06/07/2025 11:52 AM CDT Temperature 36.1 C (97 F) 06/07/2025 11:52 AM CDT Respiratory Rate 18 06/07/2025 11:5 2 AM CDT Oxygen Saturation 98% 06/07/2025 11: 52 AM CDT Inhaled Oxygen Concentration - - Weight 92.4 kg (203 lb 11.2 oz) 025 11:52 AM CDT Height 172.7 cm (5' 8) 06/07/2025 11:5 2 AM CDT Body Mass Index 30.97 06/07/2025 11:52 AM CDT Plan of Treatment Health Maintenance Due Date Last Done Comments Covid-19 Vaccine (2023- 5 season) 2025 10/12/2024, 09/29/2023, 09/10/2022, Additional history exists Influenza Vaccine (#1) 2025 , 09/16/2023, 09/10/2022, Additional history exists Hemoglobin A1C 10/25/2025 04/25/2025, 09/22, 04/06/2024, Additional history exists Lung Cancer Screening 12/30/2025 12/29/2024 , 11/17/2024, 11/08/2023, Additional history exists Dilated Eye Exam 03/05/2026 03/05/2025 Albumin Creatinine Ratio, Urine 04/25/2026 04/25/2025, 10/03/2024, 04/06/2024, Additional history exists Lipid Panel 04/25/2026 04/25/2025, 09/0 04/2022, 06/27/2021, Additional history exists Depression Screening 05/03/2026 05/03/2025, 04/13/2024, 01/04/2023, Additional history exists Foot Exam 05/03/2026 05/03/2025, 10/12/2024 Well Visit 65+ 05/03/2026 05/03/2025, 03/23, 01/04/2023, Additional history exists Fall Risk Assessment 05/04/2026 05/04/2025, 05/03/2025, 04/13/2024, Additional history exists eGFR 05/04/2026 05/04/2025, 04/22, 04/25/2025, Additional history exists DTaP/Tdap/Td Vaccine (3 - Td or Tdap) 06/28/2028 06/28/2018, 09/21/2010 Hepatitis C Screening Completed 10/08/2017 Zoster Vaccine Completed 12/11/2022, 09/10/2022 Pneumococcal vaccine 65+ Completed 024, 08/11/2016, 11/06/2014 Colon Cancer Screening-CT Colonography Discontinued 04/17/2025, 09/08/2017, 07/15/2012 Colon Cancer Screening-Colonoscopy Discontinued 04/17/2025, 09/08/2017, 07/15/2012 Colon Cancer Screening-DNA Stool Discontinued 04/17/2025, 09/08/2017, 07/15/2012 Colon Cancer Screening-FIT Discontinued 04/17, 09/08/2017, 07/15/2012 Colon Cancer Screening-FOBT Discontinued 03/23, 09/08/2017, 07/15/2012 Colon Cancer Screening-Sigmoidoscopy Discontinued 04/17/2025, 09/08/2017, 07/15/2012 Colorectal Cancer Screening Discontinued Hepatitis B Screening Completed 04/25/2025 Abdominal Aortic Aneurysm (A AA) Screen Completed 06/20/2025, 05/02/2022, 06/28/2021, Additional history exists Goals Goal Patient Goal Type Associated Problems Recent Progress Patient-Stated? Author [facility] Clair Vazquez, RN Note: Walk, ride motorcycle, golf with minimal to no pain. Medical Devices Implanted Type Area Equine Breeder Device Identifier Shelf Expiration Date Model / Serial / Lot [employer] [id number] Angio-Seal Evolution 6fr .035in Guidewire Bypass Tube Suture - [id number] Implanted:Qty: 1 on 06/27/2021 by Trey Vides MD at [facility] 01/19/2022 [id number] / / [id number] [facility] Angio-Seal Evolution 6fr Vascular Closure [id number] - [id number] Implanted:Qty: 1 on 07/28/2022 by Benjamín Torres MD at [facility] 11/21/2022 [id number] / / [id number] [employer] Mynxgrip 6-7fr Balloon Catheter Integrate Sealant Lock Latex Free [id number] - [id number] Implanted:Qty: 1 on 05/03/2025 by Namrata Jacobs MD at [facility] [employer] 02/21/2027 [id number] / / [id number] Procedures Procedure Name Priority Date/Time Associated Diagnosis Comments CT ABDOMEN PELVIS WO CONTRAST Schedule IRENE, Read Routine (Patient lives out of area) 06/20/2025 10:30 AM CDT Enlarged lymph nodes US GROIN PSEUDO DUPLEX RIGHT Schedule Routine, Read Routine (OP Routine) 05/10/2025 1:57 PM CDT Pain in right leg Hematoma TRANSTHORACIC ECHO (TTE) COMPLETE W DOPPLER/CF WO CONTRAST Routine 05/04/2025 10:36 AM CDT EGFR Routine 05/04/2025 6:26 AM CDT DIFFERENTIAL AUTO Routine 05/04/2025 6:2 6 AM CDT COMPREHENSIVE METABOLIC PANEL Routine 05/04/2025 6:26 AM CDT CBC WITH AUTO DIFFERENTIAL Routine 05/04/2025 6:26 AM CDT TROPONIN T HIGH-SENSITIVITY 6-HOUR Timed 05/03/2025 6:50 PM CDT LEFT HEART CATHETERIZATION WITH CORONARY ANGIOGRAPHY GRAFT AND LEFT VENTRICULOGRAM Routine 05/03/2025 4:59 PM CDT AORTOGRAM ABDOMINAL S&I Routine 05/03/2025 4:59 PM CDT AORTOGRAM THORACIC S&I Routine 05/03/2025 4:59 PM CDT TROPONIN T HIGH-SENSITIVITY 2-HOUR Timed 05/03/2025 12:53 PM CDT XR CHEST 1 VIEW ED 05/03/2025 11:44 AM CDT EGFR STAT 05/03/2025 11:14 AM CDT DIFFERENTIAL AUTO STAT 05/03/2025 11:14 AM CDT TROPONIN T HIGH-SENSITIVITY SERIES (BASELINE, 2HR, 4HR, 6HR) STAT 05/03/2025 11:14 AM CDT PRO B-TYPE NATRIURETIC PEPTIDE STAT 05/03/2025 11:14 AM CDT CBC WITH AUTO DIFFERENTIAL STAT 05/03/2025 11:14 AM CDT COMPREHENSIVE METABOLIC PANEL STAT 05/03/2025 11:14 AM CDT ECG 12-LEAD STAT 05/03/2025 11:12 AM CDT ECG 12-LEAD Routine 05/03/2025 9:45 AM CDT Ischemic heart disease due to coronary artery obstruction (HCC) Precordial chest pain PSA, TOTAL AND FREE Routine 04/25/2025 8 :02 AM CDT Prostate cancer (HCC) LIPID PANEL Routine 04/25/2025 7:58 AM CDT Multiple-type hyperlipidemia HEMOGLOBIN A1C Routine 04/25/2025 7:58 AM CDT Type 2 diabetes mellitus with stage 3a chronic kidney disease, without long-term current use of insulin (HCC) COMPREHENSIVE METABOLIC PANEL Routine 04/25/2025 7:58 AM CDT Type 2 diabetes mellitus with stage 3a chronic kidney disease, without long-term current use of insulin (HCC) ALBUMIN CREATININE RATIO, URINE Routine 04/25/2025 7:58 AM CDT Type 2 diabetes mellitus with stage 3a chronic kidney disease, without long-term current use of insulin (HCC) HEPATITIS B SURFACE ANTIGEN Routine 04/25/2025 7:58 AM CDT Immunity status testing Encounter for screening for other viral diseases HEPATITIS B SURFACE ANTIBODY (IMMUNE STATUS) Routine 04/25/2025 7:58 AM CDT Immunity status testing Encounter for screening for other viral diseases HEPATITIS B CORE ANTIBODY, TOTAL Routine 04/25/2025 7:58 AM CDT Immunity status testing Encounter for screening for other viral diseases COLON REMOVAL SNARE 04/17/2025 12:17 PM CDT Encounter for colonoscopy due to history of adenomatous colonic polyps Encounter for screening colonoscopy COLONOSCOPY 04/17/2025 10:33 AM CDT SURGICAL PATHOLOGY STAT 04/17/2025 9: 40 AM CDT Encounter for colonoscopy due to history of adenomatous colonic polyps Encounter for screening colonoscopy HM DIABETES EYE EXAM Routine 03/05/2025 9:[address] CHEST WO CONTRAST F/U LUNG SCREEN PROTOCOL Schedule Routine, Read Routine (OP Routine) 12/29/2024 11:05 AM [employer] Lung nodule HEPATITIS C ANTIBODY Routine 10/08/2017 7:51 AM [employer] Need for hepatitis C screening test from Last 3 Months or Most Recently Relevant to Health Maintenance Results * CT Abdomen Pelvis WO Contrast (06/20/2025 10:30 AM CDT) Anatomical Region Laterality Modality Body N/A Computed Tomogra phy 06/27/2025 12:4 3 AM CDT Narrative 06/27/2025 12:48 AM CDT EXAM DESCRIPTION: CT ABDOMEN PELVIS WO CONTRAST REASON FOR STUDY: Lymphadenopathy, groin F/u enlarged lymph nodes seen on right groin Doppler 05/10/2025. Hx of prostate cancer and prostate removal. TECHNIQUE: CT scan of the abdomen and pelvis performed without intravenous and without oral contrast using helical scanning technique. Reconstructed coronal and sagittal MPR images reviewed. All images stored on PACS. Automated exposure control was used as a dose optimization technique for this examination. COMPARISON: 05/10/2025 and 05/02/2022 FINDINGS: The sensitivity for detection of visceral lesions is diminished without the use of intravenous contrast. LOWER CHEST: No significant pulmonary abnormalities. No effusion. LIVER: Normal size. No identified cystic or solid masses. GALLBLADDER: Stones. No wall thickening or pericholecystic fluid. BILE DUCTS: No intrahepatic or extrahepatic ductal dilatation. SPLEEN: Normal size. No focal lesions. PANCREAS: No identified cystic or solid masses. No significant calcifications. No adjacent inflammation or peripancreatic fluid collections. Pancreatic duct not dilated. ADRENALS: Normal. KIDNEYS/URINARY TRACT: No identified significant cystic or solid masses. No stones. No hydronephrosis or hydroureter. Urinary bladder is unremarkable. GI: No dilated bowel loops. No obvious wall thickening. Normal appendix. Scattered diverticular disease without diverticulitis. PERITONEUM: No ascites or free air. RETROPERITONEUM: No mass or adenopathy. REPRODUCTIVE: Prostatectomy. VASCULATURE: Atherosclerotic disease in the aorta and iliacs MUSCULOSKELETAL: Multilevel degenerative changes are present without fracture. No concerning lesions are present. OTHER: Bilateral inguinal hernias containing only fat. No inguinal lymphadenopathy identified. IMPRESSION: 1. Bilateral inguinal hernias containing only fat. No inguinal lymphadenopathy identified. 2. Cholelithiasis. 3. Diverticulosis. No evidence of diverticulitis. 4. Prostatectomy. THIS IS AN ELECTRONICALLY VERIFIED FINAL REPORT 06/27/2025 12:48 AM - Electronically signed by Rigoberto Leyva M.D. KT: ADRY Report ID: [id number] Reading Location: [id number] Procedure Note Rigoberto Leyva MD - 06/27/2025 EXAM DESCRIPTION: CT ABDOMEN PELVIS WO CONTRAST REASON FOR STUDY: Lymphadenopathy, groin F/u enlarged lymph nodes seen on right groin Doppler 05/10/2025. Hx of prostate cancer and prostate removal. TECHNIQUE: CT scan of the abdomen and pelvis performed without intravenousand without oral contrast using helical scanning technique. Reconstructed coronal and sagittal MPR images reviewed. All images stored on PACS.Automated exposure control was used as a dose optimization technique for this examination. COMPARISON: 05/10/2025 and 05/02/2022 FINDINGS: The sensitivity for detection of visceral lesions is diminished withoutthe use of intravenous contrast. LOWER CHEST: No significant pulmonary abnormalities. No effusion. LIVER: Normal size. No identified cystic or solid masses. GALLBLADDER: Stones. No wall thickening or pericholecystic fluid. BILE DUCTS: No intrahepatic or extrahepatic ductal dilatation. SPLEEN: Normal size. No focal lesions. PANCREAS: No identified cystic or solid masses. No significant calcifications. No adjacent inflammation or peripancreatic fluidcollections. Pancreatic duct not dilated. ADRENALS: Normal. KIDNEYS/URINARY TRACT: No identified significant cystic or solid masses.No stones. No hydronephrosis or hydroureter. Urinary bladder isunremarkable. GI: No dilated bowel loops. No obvious wall thickening. Normal appendix. Scattered diverticular disease without diverticulitis. PERITONEUM: No ascites or free air. RETROPERITONEUM: No mass or adenopathy. REPRODUCTIVE: Prostatectomy. VASCULATURE: Atherosclerotic disease in the aorta and iliacs MUSCULOSKELETAL: Multilevel degenerative changes are present without fracture. No concerning lesions are present. OTHER: Bilateral inguinal hernias containing only fat. No inguinal lymphadenopathy identified. IMPRESSION: 1. Bilateral inguinal hernias containing only fat. No inguinal lymphadenopathy identified. 2. Cholelithiasis. 3. Diverticulosis. No evidence of diverticulitis. 4. Prostatectomy. THIS IS AN ELECTRONICALLY VERIFIED FINAL REPORT 06/27/2025 12:48 AM - Electronically signed by Rigoberto Leyva M.D. KT: KT Report ID: [id number] Reading Location: [place] [address] us Namrata Jacobs MD IMG CT PROCEDURES Final Result * US Groin Pseudo Duplex Right (05/10/2025 1:57 PM CDT) Anatomical Region Laterality Modality Vascular Right Ultrasound 05/23/2025 12:0 4 PM CDT Narrative 05/23/2025 12:09 PM CDT EXAM DESCRIPTION: Ultrasound pseudoaneurysm arterial duplex Doppler ultrasound REASON FOR STUDY: Right groin pain x2 days TECHNIQUE: Real-time sonographic ultrasound of the right groin with grayscale and color Doppler images were obtained. Arterial spectral waveforms in the right groin arterial vasculature was performed for interpretation. COMPARISON: None FINDINGS: Normal arterial spectral waveforms in the right common femoral and superficial femoral artery are seen. Superficial varices in the right groin are seen. Multiple soft tissue nodules with mixed echogenicity, likely right groin lymph nodes are seen. No abnormal color flow. For reference the largest measures 3.7 x 0.6 cm. IMPRESSION: 1. No pseudoaneurysm. 2. Multiple soft tissue nodules with mixed echogenicity, likely right groin lymph nodes. For reference the largest measures 3.7 x 0.6 cm. Consider follow-up CT of the pelvis with contrast for further evaluation. 3. Suspect right groin superficial varices. Consider follow-up reflux ultrasound greater saphenous vein for further evaluation. THIS IS AN ELECTRONICALLY VERIFIED FINAL REPORT 05/23/2025 12:09 PM - Electronically signed by Chino Duenas M.D. BB: ABEL Report ID: [id number] Reading Location: [id number] Procedure Note Chino Duenas MD PhD - 05/23/2025 EXAM DESCRIPTION: Ultrasound pseudoaneurysm arterial duplex Dopplerultrasound REASON FOR STUDY: Right groin pain x2 days TECHNIQUE: Real-time sonographic ultrasound of the right groin withgrayscale and color Doppler images were obtained. Arterial spectral waveforms inthe right groin arterial vasculature was performed for interpretation. COMPARISON: None FINDINGS: Normal arterial spectral waveforms in the right common femoral andsuperficial femoral artery are seen. Superficial varices in the right groin are seen. Multiple soft tissue nodules with mixed echogenicity, likely right groinlymph nodes are seen. No abnormal color flow. For reference the largestmeasures 3.7 x 0.6 cm. IMPRESSION: 1. No pseudoaneurysm. 2. Multiple soft tissue nodules with mixed echogenicity, likely rightgroin lymph nodes. For reference the largest measures 3.7 x 0.6 cm. Consider follow-up CT of the pelvis with contrast for further evaluation. 3. Suspect right groin superficial varices. Consider follow-up reflux ultrasound greater saphenous vein for further evaluation. THIS IS AN ELECTRONICALLY VERIFIED FINAL REPORT 05/23/2025 12:09 PM - Electronically signed by Chino Duenas M.D. BB: ABEL Report ID: [id number] Reading Location: [place] [address] us Namrata Jacobs MD IMG US PROCEDURES Final Result * TRANSTHORACIC ECHO (TTE) COMPLETE W DOPPLER/CF WO CONTRAST (05/04/2025 10:36 AM CDT) Estimated EF 60 % CONS SCIMAGE Anatomical Region Laterality Modality Ultrasound 05/04/2025 10:0 0 AM CDT Narrative 05/04/2025 11:10 AM CDT [address] [address] Echocardiogram Report Patient Name: LUIS FERNANDO TAYLOR : 1950 Study Date: 05/04/2025 10:00:00 AM Gender: M Tech: SERVICES TECH Location: [id number] Ref Provider: NAMRATA JACOBS Height(Cm): 173 BSA: 2.11 Weight(Kg): 93 Quality: Adequate Order Provider: NAMRATA JACOBS PROCEDURES: Echocardiographic Report: Transthoracic echocardiogram with complete 2D, M-Mode, and color Doppler examination. INDICATIONS: Aortic Stenosis. MEASUREMENTS: 2D/MM Value Range Doppler Value Range EF Teich MM 61.0 % [ 52.0 - 72.0 ] [place] Vmax 1.07 cm2 Estimated EF 60 to 65 % AV Mean PG 24 mmHg LVIDd MM 4.54 cm [ 4.20 - 5.80 ] AV Peak Dagoberto 3.25 m/s [ 1.00 - 1.70 ] LVIDs MM 3.06 cm [ 2.50 - 4.00 ] AV VTI 60.03 cm LVPWd MM 1.05 cm [ 0.60 - 1.00 ] LVOT Diam 2.34 cm IVSd MM 1.05 cm [ 0.60 - 1.00 ] LVOT Peak Dagoberto 0.81 m/s [ 0.70 - 1.10 ] LA Dimension MM 3.50 cm [ 3.00 - 4.00 ] LVOT VTI 16.18 cm AoR Diam MM 2.70 cm [ 3.10 - 3.70 ] MV E Peak Dagoberto 0.56 m/s [ 0.60 - 1.30 ] ACS MM 1.51 cm [ 1.50 - 2.60 ] MV A Peak Dagoberto 1.00 m/s [ 1.00 - 1.20 ] MV Mean PG 3 mmHg MV PHT 61 msec [ 20 - 100 ] MVA 3.60 MV Decel Time 310 msec [ 104 - 258 ] PV Peak Dagoberto 1.45 m/s [ 0.40 - 0.80 ] TR Peak Dagoberto 2.90 m/s [ 1.00 - 2.80 ] TR Peak PG 34 mmHg RVSP 37.00 mmHg [ 10.00 - 36.00 ] E` 0.04 m/s E/E` 14.55 [ <= 10.00 ] PA Pressure 37.00 mmHg [ 10.00 - 36.00 ] 2D/MM Value Range Doppler Value Range - FINDINGS: Atrial Septum: Normal atrial septum. Left Ventricle: Mild concentric left ventricular hypertrophy. Normal global left ventricular systolic function. Diastolic dysfunction is present. Ejection Fraction is estimated to be 60 to 65 %. Left Atrium: The left atrium is normal in size. Right Ventricle: Normal right ventricular size. Normal right ventricular systolic function. Right Atrium: The right atrium is normal in size. Aortic Valve: Moderate aortic stenosis. Peak velocity AOV of 3.3 m/sec. Peak gradient of 42.0 mmHg. Valve area of 1.2 cm2. Aortic cusps appear moderately sclerotic. Aortic cusps appear moderately restricted. Mild aortic valve regurgitation. Mitral Valve: Mild mitral annular calcification. Trivial regurgitation of the mitral valve. Pulmonic Valve: Normal structure of the pulmonic valve. Tricuspid Valve: Normal structure of the tricuspid valve. Mild pulmonary hypertension based on right ventricular systolic pressure. Estimated peak RVSP is 43 to 47 mmHg. Trivial regurgitation in the tricuspid valve. Pericardium: There is an anterior echo free space consistent with epicardial fat pad. Aorta: Normal aortic root. IVC: Normal size and normal respiratory collapse consistent with normal right atrial pressure (<5 mmHg). CONCLUSIONS: Mild concentric left ventricular hypertrophy. Normal global left ventricular systolic function. Diastolic dysfunction is present. Ejection Fraction is estimated to be 60 to 65 %. Mild mitral annular calcification. Trivial regurgitation of the mitral valve. Moderate aortic stenosis. Peak velocity AOV of 3.3 m/sec. Peak gradient of 42.0 mmHg. Valve area of 1.2 cm2. Aortic cusps appear moderately sclerotic. Aortic cusps appear moderately restricted. Mild aortic valve regurgitation. Normal structure of the tricuspid valve. Mild pulmonary hypertension based on right ventricular systolic pressure. Estimated peak RVSP is 43 to 47 mmHg. Trivial regurgitation in the tricuspid valve. Electronically Signed By: Dr Trey Vides 05/04/2025 11:10:44 AM CDT Procedure Note Trey Vides MD - 05/04/[address] [place] [address] Echocardiogram Report Patient Name: LUIS FERNANDO TAYLOR : 1950 Study Date: 05/04/2025 10:00:00 AM Gender: M Tech: SERVICES TECH Location: [place] [address] Ref Provider: NAMRATA JACOBS Height(Cm): 173 BSA: 2.11 Weight(Kg): 93 Quality: Adequate Order Provider: NAMRATA JACOBS PROCEDURES: Echocardiographic Report: Transthoracic echocardiogram with complete 2D, M-Mode, and color Dopplerexamination. INDICATIONS: Aortic Stenosis. MEASUREMENTS: 2D/MM Value Range Doppler ValueRange EF Teich MM 61.0 % [ 52.0 - 72.0 ] [place] Vmax 1.07cm2 Estimated EF 60 to 65 % AV Mean PG 24mmHg LVIDd MM 4.54 cm [ 4.20 - 5.80 ] AV Peak Dagoberto 3.25m/s [ 1.00 - 1.70 ] LVIDs MM 3.06 cm [ 2.50 - 4.00 ] AV VTI 60.03cm LVPWd MM 1.05 cm [ 0.60 - 1.00 ] LVOT Diam 2.34cm IVSd MM 1.05 cm [ 0.60 - 1.00 ] LVOT Peak Dagoberto 0.81m/s [ 0.70 - 1.10 ] LA Dimension MM 3.50 cm [ 3.00 - 4.00 ] LVOT VTI 16.18cm AoR Diam MM 2.70 cm [ 3.10 - 3.70 ] MV E Peak Dagoberto 0.56m/s [ 0.60 - 1.30 ] ACS MM 1.51 cm [ 1.50 - 2.60 ] MV A Peak Dagoberto 1.00m/s [ 1.00 - 1.20 ] MV Mean PG 3 mmHg MV PHT 61 msec [ 20 - 100 ] MVA 3.60 MV Decel Time 310 msec [ 104 - 258 ] PV Peak Dagoberto 1.45 m/s [ 0.40 - 0.80 ] TR Peak Dagoberto 2.90 m/s [ 1.00 - 2.80 ] TR Peak PG 34 mmHg RVSP 37.00 mmHg [ 10.00 - 36.00 ] E` 0.04 m/s E/E` 14.55 [ <= 10.00 ] PA Pressure 37.00 mmHg [ 10.00 - 36.00 ] 2D/MM Value Range Doppler ValueRange - FINDINGS: Atrial Septum: Normal atrial septum. Left Ventricle: Mild concentric left ventricular hypertrophy. Normal global leftventricular systolic function. Diastolic dysfunction is present. Ejection Fraction is estimatedto be 60 to 65 %. Left Atrium: The left atrium is normal in size. Right Ventricle: Normal right ventricular size. Normal right ventricular systolicfunction. Right Atrium: The right atrium is normal in size. Aortic Valve: Moderate aortic stenosis. Peak velocity AOV of 3.3 m/sec. Peak gradient of42.0 mmHg. Valve area of 1.2 cm2. Aortic cusps appear moderately sclerotic. Aorticcusps appear moderately restricted. Mild aortic valve regurgitation. Mitral Valve: Mild mitral annular calcification. Trivial regurgitation of the mitralvalve. Pulmonic Valve: Normal structure of the pulmonic valve. Tricuspid Valve: Normal structure of the tricuspid valve. Mild pulmonary hypertension basedon right ventricular systolic pressure. Estimated peak RVSP is 43 to 47 mmHg.Trivial regurgitation in the tricuspid valve. Pericardium: There is an anterior echo free space consistent with epicardial fat pad. Aorta: Normal aortic root. IVC: Normal size and normal respiratory collapse consistent with normal rightatrial pressure (<5 mmHg). CONCLUSIONS: Mild concentric left ventricular hypertrophy. Normal global leftventricular systolic function. Diastolic dysfunction is present. Ejection Fraction is estimatedto be 60 to 65 %. Mild mitral annular calcification. Trivial regurgitation of the mitralvalve. Moderate aortic stenosis. Peak velocity AOV of 3.3 m/sec. Peak gradient of42.0 mmHg. Valve area of 1.2 cm2. Aortic cusps appear moderately sclerotic. Aorticcusps appear moderately restricted. Mild aortic valve regurgitation. Normal structure of the tricuspid valve. Mild pulmonary hypertension basedon right ventricular systolic pressure. Estimated peak RVSP is 43 to 47 mmHg.Trivial regurgitation in the tricuspid valve. Electronically Signed By: Dr Trey Vides 05/04/2025 11:10:44 AM CDT us Namrata Jacobs MD CV ECHO PROCEDURES Final Result * eGFR (05/04/2025 6:26 AM CDT) eGFR 65 >=60 mL/min/1. 73 m2 Comment: Interpretive Data Reference Interval Normal >/= 90 mL/min/1.73m2 Mildly decreased* 60 - 89 mL/min/1.73m2 Mildly to moderately decreased 45 - 59 mL/min/1.73m2 Moderately to severely decreased 30 - 44 mL/min/1.73m2 Severely decreased 15 - 29 mL/min/1.73m2 Kidney Failure < 15 mL/min/1.73m2 *Relative to young adult level Estimated glomerular filtration rate is determined by the 2020 CKD-EPI equation recommended by the National Kid[employer] (A Unifying Approach to GFR Estimation: Recommendations of the NKF-ASK Task Force on Reassessing the Inclusion of Race in Diagnosing Kidney Disease, JASN 2020). The CKD-EPI equation should not be used for patients with unstable renal function and has not been validated in children and those over 70. Current interpretive data was last reviewed 2021. Blood 05/04/2025 6:26 AM CDT 05/04/2025 6:36 AM CDT us Vinny Grant MD LAB BLOOD ORDERABLES Final Resu lt [facility] ([place] Department [place] [address] * (ABNORMAL) Differential, auto (05/04/2025 6:26 AM CDT) Neutrophil abs 6.37 1.50 - 6.50 K/cumm Imm gran abs 0.04 0.00 - 0.10 K/cumm [facility] ([place]) Lymphocyte abs 2.65 0.80 - 3.30 K/cumm [facility] ([place]) Monocyte abs 0.95(H) 0.20 - 0.80 K/cumm [facility] ([place]) Eosinophil abs 1.45(H) 0.00 - 0.50 K/cumm [facility] ([place]) Basophil abs 0.10 0.00 - 0.10 K/cumm [facility] ([place]) Neutrophil pct 55.2 % [facility] ([place]) Comment: Interpretive Data Percent cell count reference ranges are not reported, since discordance with absolute values may lead to misinterpretation of CBC data. Current Interpretive Data was last revised on 2018. Imm gran pct 0.3 % [facility] ([place]) Comment: Interpretive Data Percent cell count reference ranges are not reported, since discordance with absolute values may lead to misinterpretation of CBC data. Current Interpretive Data was last revised on 2018. Lymphocyte pct 22.9 % [facility] ([place]) Comment: Interpretive Data Percent cell count reference ranges are not reported, since discordance with absolute values may lead to misinterpretation of CBC data. Current Interpretive Data was last revised on 2018. Monocyte pct 8.2 % [facility] ([place]) Comment: Interpretive Data Percent cell count reference ranges are not reported, since discordance with absolute values may lead to misinterpretation of CBC data. Current Interpretive Data was last revised on 2018. Eosinophil pct 12.5 % [facility] ([place]) Comment: Interpretive Data Percent cell count reference ranges are not reported, since discordance with absolute values may lead to misinterpretation of CBC data. Current Interpretive Data was last revised on 2018. Basophil pct 0.9 % [facility]) Comment: Interpretive Data Percent cell count reference ranges are not reported, since discordance with absolute values may lead to misinterpretation of CBC data. Current Interpretive Data was last revised on 2018. Blood 05/04/2025 6:26 AM CDT 05/04/2025 6:36 AM CDT us Vinny Grant MD LAB BLOOD ORDERABLES Final Resu lt [facility] ([place]) [facility] Department of Laboratories [place], [place] [id number] * (ABNORMAL) CBC with auto differential (05/04/2025 6:26 AM CDT) WBC 11.56(H) 3.80 - 9.90 K/cumm Hgb 15.2 13.0 - 17.5 g/dL [facility] Hct 44.0 38.9 - 50.3 % [facility] Plt 358 150 - 400 K/cumm [facility] ([place]) MPV 10.5 9.1 - 12.3 fL [facility] ([place]) RBC 4.75 4.30 - 5.80 M/cumm [facility] ([place]) MCV 92.6 81.3 - 96.4 fL [facility] ([place]) MCH 32.0 27.1 - 33.3 pg [facility] ([place]) MCHC 34.5 32.3 - 35.7 g/dL [facility] RDW CV 13.1 11.1 - 14.9 % [facility] RDW SD 44.2 35.7 - 48.1 fL [facility] ([place]) NRBC abs 0.00 0.00 - 0.01 K/cumm [facility] ([place]) Blood 05/04/2025 6:26 AM CDT 05/04/2025 6:36 AM CDT us Vinny Grant MD LAB BLOOD ORDERABLES Final Resu lt [facility] ([place]) [facility] Department [place] [address] * (ABNORMAL) Comprehensive metabolic panel (05/04/2025 6:26 AM CDT) Sodium 137 135 - 145 mmol/L Potassium, pl 4.6 3.3 - 4.9 mmol/L [facility]) Chloride 101 97 - 110 mmol/L [facility] CO2 26 22 - 32 mmol/L [facility]) Anion gap 11 2 - 15 mmol/L [facility] ([place]) BUN 17 6 - 25 mg/dL [facility]) Creatinine 1.16 0.80 - 1.30 mg/dL [facility]) Comment:Icteric sample, test results may be affected. Glucose 86 70 - 199 mg/dL [facility] ([place]) Comment: Interpretive Data Fasting glucose >/= 126 mg/dl is diagnostic for diabetes. Fasting is defined as no caloric intake for at least 8 hours. Fasting glucose between 100 mg/dl to 125 mg/dl is diagnostic of prediabetes. In a patient with classic symptoms of hyperglycemia or hyperglycemic crisis, a random glucose >/= 200 mg/dl is diagnostic for diabetes. In the absence of unequivocal hyperglycemia, results should be confirmed by repeat testing. The classification and Diagnosis of Diabetes Diabetes Care 2021; 46: S19-S40. Current interpretive data was last revised 2022. Calcium 8.8 8.5 - 10.3 mg/dL [facility]) Bilirubin, total 1.3(H) 0.1 - 1.2 mg/dL [facility] ([place]) Protein, pl 5.5(L) 6.5 - 8.5 g/dL [facility] ([place]) Albumin 3.3(L) 3.5 - 5.0 g/dL [facility] ([place]) Alk phos 34(L) 40 - 130 Units/L [facility] ([place]) ALT 25 7 - 55 Units/L [facility]) AST 25 10 - 50 Units/L [facility]) Blood 05/04/2025 6:26 AM CDT 05/04/2025 6:36 AM CDT us Vinny Grant MD LAB BLOOD ORDERABLES Final Resu lt [facility] ([place] Department [place] [address] * Troponin T high-sensitivity 6-hour (05/03/2025 6:50 PM CDT) Trop T hs 22 <=22 ng/L Comment: Interpretive Data For further hscTnT resources including the diagnostic algorithm and an aid in interpretation, copy and paste this link: https://nrl.testcatalog.org/show/hsTrop Current Interpretive Data last revised 2020. Trop T hs delta See Comment ng/L [facility] ([place]) Comment:Inappropriate collec tion time to report a delta. Trop T hs pct delta See Comment % [facility] ([place]) Comment:Inappropriate collec tion time to report a delta. Trop T hs interp See Comment [facility] ([place]) Comment:Inappropriate collec tion time to report a delta. 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 He had catheterization in 2021 which showed patent grafts. He presents now with recurrent chest pain at rest, similar as before. The EKG and cardiac enzymes were negative. He also has known aortic stenosis that was in the moderate range by echo in 2023. He was referred for angiography. INDICATION FOR PROCEDURE Coronary artery disease, 2 vessel bypass surgery, aortic stenosis. PROCEDURE PERFORMED Left heart catheterization, selective coronary angiography, left ventriculography, graft angiography, ascending aortography, abdominal aortography, and vascular access closure. After obtaining informed consent, patient was brought to the cardiac track laborer suite. He was prepped and draped in usual sterile fashion. Conscious sedation was administered by the track laborer staff under my supervision. A total of 3 mg of Versed, 100 mcg of fentanyl and 50 mg of Benadryl were given in divided doses. See procedure log for further details. Total sedation time was 27 minutes. Heavy calcifications were noted in both common femoral arteries. A 5-Italian sheath was inserted in the right side. Selective coronary cannulation was performed with standard Filiberto catheters. Graft angiography was performed using a combination of right Filiberto and FRANCY catheters. Left ventriculography was performed in the TAMAYO projection using pigtail followed by left heart pullback. Retrograde crossing of aortic valve was performed using right Filiberto and straight wire. The pigtail catheter was then used to perform ascending aortography in the BRIGETTE projection. Pigtail was retracted into the abdominal aorta and performed aortography in the AP projection. At the end of procedure, the arterial sheath was removed and vascular access was closed using Mynx device. FINDINGS: HEMODYNAMICS: LV pressure was 165/15, ascending aortic pressure 145-150/65. There was 25 to 30 mm peak to peak gradient across the aortic valve. LEFT VENTRICULOGRAPHY: This showed normal systolic wall motion. Estimated ejection fraction 65% to 70%. ASCENDING AORTOGRAPHY: This showed marked calcifications of the aortic valve with markedly limited leaflet mobility. There was no significant aortic insufficiency. ABDOMINAL AORTOGRAPHY: This was performed to evaluate the iliac vessels in case of needing aortic valve replacement. There was heavy calcification in distal abdominal aorta extending into the common iliac arteries. The iliac vessels were patent with moderate tortuosity in the external iliac arteries, but they were of large caliber bilaterally. LEFT CORONARY ARTERY: The left main coronary artery was occluded proximally. RIGHT CORONARY ARTERY: The right coronary artery was the dominant vessel,it had calcifications proximally with tandem 30% lesions in the proximal, mid segments. The Distal vessel gives a medium-sized posterior descending and small to medium-sized posterolateral branches. The distal branches of the right coronary artery were angiographically normal. GRAFT ANGIOGRAPHY: The vein graft to the obtuse marginal was patent with proximal tortuosity. The distal anastomosis was normal. The Distal vessel beyond graft anastomosis was large branching vessel angiographically normal. There was retrograde filling in the circumflex proper. The COVARRUBIAS graft to the distal left anterior descending was widely patent with normal distal anastomosis. There was retrograde filling into the mid left anterior descending with a large 1st diagonal which had 50% proximal stenosis. IMPRESSION 1. Coronary artery disease involving total occlusion of the left main coronary artery. 2. Patent COVARRUBIAS graft to the left anterior descending. 3. Patient vein graft to the obtuse marginal. 4. Normal left ventricular systolic function. 5. Aortic stenosis with 25-30 mm peak to peak gradient across the aortic valve. 6. Normal left ventricular diastolic pressure. 7. Calcified abdominal aorta and iliac vessels, however, of large caliber. 8. Successful vascular access closure. CARE PLAN There is no high-grade lesions to warrant intervention. Both Grafts are patent. The right coronary artery has mild disease. The patient could have progressive aortic stenosis . We will repeat echocardiogram in the morning. Namrata Jacobs MD Job ID/Internal Job ID: [id number] Namrata Jacobs MD CV CARDIAC CATH PROCEDURES Melissa l Result * Troponin T high-sensitivity 2-hour (05/03/2025 12:53 PM CDT) Trop T hs 20 <=22 ng/L Comment: Interpretive Data For further hscTnT resources including the diagnostic algorithm and an aid in interpretation, copy and paste this link: https://nrl.testcatalog.org/show/hsTrop Current Interpretive Data last revised 2020. Trop T hs delta -8 ng/L [facility] Trop T hs interp Equivocal [facility] ([place]) Blood 05/03/2025 12:5 3 PM CDT 05/03/2025 1:00 PM CDT Ta Rebolledo MD LAB BLOOD ORDERABLES Final R esult [facility] ([place] Department [place] [address] * XR Chest 1 Vw Portable (05/03/2025 11:44 AM CDT) Anatomical Region Laterality Modality Body, Chest N/A Computed Radiogr aphy 05/03/2025 11:4 9 AM CDT Narrative 05/03/2025 11:51 AM CDT EXAM DESCRIPTION: XR CHEST 1 VIEW REASON FOR STUDY: pain Pt complaints of chest pain TECHNIQUE: AP portable upright radiographic view(s) of the chest. COMPARISON: 10/11/[address] 12/29/2024. FINDINGS: LUNGS: There is no focal consolidation within either lung. Suspect minimal basilar atelectasis. There is eventration of the right hemidiaphragm. No large effusion. No appreciable pneumothorax. Known victoria metric nodules demonstrated on prior lung screen CT not well evaluated by radiograph. HEART/MEDIASTINUM: Cardiac silhouette is normal in size. Pulmonary vascularity within normal limits. LINES/TUBES: Sternotomy changes are noted. BONES: Osteoarthritis of the shoulders. IMPRESSION: No consolidation, effusion or pneumothorax. Known pulmonary nodules being followed in the lung cancer screening program are not well identified by radiograph. THIS IS AN ELECTRONICALLY VERIFIED FINAL REPORT 05/03/2025 11:51 AM - Electronically signed by Kirstin Bledsoe M.D. TW: TW Report ID: [id number] Reading Location: [id number] Procedure Note Kirstin Bledsoe MD - 05/03/2025 EXAM DESCRIPTION: XR CHEST 1 VIEW REASON FOR STUDY: pain Pt complaints of chest pain TECHNIQUE: AP portable upright radiographic view(s) of the chest. COMPARISON: 10/11/[address] 12/29/2024. FINDINGS: LUNGS: There is no focal consolidation within either lung. Suspectminimal basilar atelectasis. There is eventration of the right hemidiaphragm. No large effusion. No appreciable pneumothorax. Known victoria metric nodules demonstrated on prior lung screen CT not well evaluated by radiograph. HEART/MEDIASTINUM: Cardiac silhouette is normal in size. Pulmonary vascularity within normal limits. LINES/TUBES: Sternotomy changes are noted. BONES: Osteoarthritis of the shoulders. IMPRESSION: No consolidation, effusion or pneumothorax. Known pulmonary nodules being followed in the lung cancer screeningprogram are not well identified by radiograph. THIS IS AN ELECTRONICALLY VERIFIED FINAL REPORT 05/03/2025 11:51 AM - Electronically signed by Kirstin Bledsoe M.D. TW: TW Report ID: [id number] Reading Location: [id number] Ta Rebolledo MD IMG XR PROCEDURES Final Resu lt * (ABNORMAL) Troponin T high-sensitivity series (baseline, 2hr, 4hr, 6hr) (05/03/2025 11:14 AM CDT) Trop T hs 28(H) <=22 ng/L Comment: Interpretive Data For further hscTnT resources including the diagnostic algorithm and an aid in interpretation, copy and paste this link: https://nrl.testcatalog.org/show/hsTrop Current Interpretive Data last revised 2020. Blood 05/03/2025 11:1 4 AM CDT 05/03/2025 11:20 AM CDT Ta Rebolledo MD LAB BLOOD ORDERABLES Final R esult [facility] ([place]) [facility] Department [place] [address] * eGFR (05/03/2025 11:14 AM CDT) eGFR 65 >=60 mL/min/1. 73 m2 Comment: Interpretive Data Reference Interval Normal >/= 90 mL/min/1.73m2 Mildly decreased* 60 - 89 mL/min/1.73m2 Mildly to moderately decreased 45 - 59 mL/min/1.73m2 Moderately to severely decreased 30 - 44 mL/min/1.73m2 Severely decreased 15 - 29 mL/min/1.73m2 Kidney Failure < 15 mL/min/1.73m2 *Relative to young adult level Estimated glomerular filtration rate is determined by the 2020 CKD-EPI equation recommended by the National Kidney Foundation (A Unifying Approach to GFR Estimation: Recommendations of the NKF-ASK Task Force on Reassessing the Inclusion of Race in Diagnosing Kidney Disease, JASN 2020). The CKD-EPI equation should not be used for patients with unstable renal function and has not been validated in children and those over 70. Current interpretive data was last reviewed 2021. Blood 05/03/2025 11:1 4 AM CDT 05/03/2025 11:20 AM CDT us Ta Rebolledo MD LAB BLOOD ORDERABLES Final R esult [facility] ([place]) [facility] Department [place] [address] * (ABNORMAL) Differential, auto (05/03/2025 11:14 AM CDT) Neutrophil abs 6.54(H) 1.50 - 6.50 K/cumm Imm gran abs 0.05 0.00 - 0.10 K/cumm [facility] ([place]) Lymphocyte abs 3.43(H) 0.80 - 3.30 K/cumm [facility] ([place]) Monocyte abs 0.99(H) 0.20 - 0.80 K/cumm [facility] ([place]) Eosinophil abs 1.69(H) 0.00 - 0.50 K/cumm [facility] ([place]) Basophil abs 0.13(H) 0.00 - 0.10 K/cumm [facility] ([place]) Neutrophil pct 51.0 % [facility] ([place]) Comment: Interpretive Data Percent cell count reference ranges are not reported, since discordance with absolute values may lead to misinterpretation of CBC data. Current Interpretive Data was last revised on 2018. Imm gran pct 0.4 % [facility] ([place]) Comment: Interpretive Data Percent cell count reference ranges are not reported, since discordance with absolute values may lead to misinterpretation of CBC data. Current Interpretive Data was last revised on 2018. Lymphocyte pct 26.7 % [facility] ([place]) Comment: Interpretive Data Percent cell count reference ranges are not reported, since discordance with absolute values may lead to misinterpretation of CBC data. Current Interpretive Data was last revised on 2018. Monocyte pct 7.7 % [facility] ([place]) Comment: Interpretive Data Percent cell count reference ranges are not reported, since discordance with absolute values may lead to misinterpretation of CBC data. Current Interpretive Data was last revised on 2018. Eosinophil pct 13.2 % [facility] ([place]) Comment: Interpretive Data Percent cell count reference ranges are not reported, since discordance with absolute values may lead to misinterpretation of CBC data. Current Interpretive Data was last revised on 2018. Basophil pct 1.0 % [facility] ([place]) Comment: Interpretive Data Percent cell count reference ranges are not reported, since discordance with absolute values may lead to misinterpretation of CBC data. Current Interpretive Data was last revised on 2018. Blood 05/03/2025 11:1 4 AM CDT 05/03/2025 11:20 AM CDT us Ta Rebolledo MD LAB BLOOD ORDERABLES Final R esult [facility] ([place]) [facility] Department [place] [address] * Pro B-type natriuretic peptide (05/03/2025 11:14 AM CDT) NT-proBNP 214 <=450 pg/mL Comment: Interpretive Comments: A. Dyspnea in Acute Care Setting All Ages: < 300 pg/ml, acute heart failure unlikely. < 50 yrs: 300 - 450 pg/ml, further investigation warranted. > 450 pg/ml, acute heart failure likely. 50 - 74 yrs: 300 - 900 pg/ml, further investigation warranted. > 900 pg/ml, acute heart failure likely . > or = 75 yrs: 450 - 1800 pg/ml, further investigation warranted. > 1800 pg/ml, acute heart failure likely. B. Non-acute Setting < 75 yrs < 125 pg/ml, rules out heart failure. > or = 125 pg/ml, further investigation warranted. > or = 75 yrs < 450 pg/ml, rules out heart failure. > or = 450 pg/ml, further investigation warranted. - Knowledge of each individual patient's NT-proBNP range may be more useful than using similar cut-points for every patient. Please note that marked elevations in NT-proBNP levels may be observed in state other than Left Ventricular Congestive Failure, including: acute coronary syndromes, right heart strain/failure (including pulmonary embolism and cor pulmonale), critical illness, renal failure, as well as advanced age. - References: 1. Екатерина MALIN et.al. Eur Heart J. 2006:27:330-337. 2. Charlene RW, Nanda KC. J. AM Lexa Cardiol: Cardiovasc Imag. 2009;2: 216- 225. Interpretive Data Last Revised Date: 2018. Blood 05/03/2025 11:1 4 AM CDT 05/03/2025 11:20 AM CDT Ta Rebolledo MD LAB BLOOD ORDERABLES Final R esult [facility] ([place]) [facility] Department [place] [address] * (ABNORMAL) CBC with auto differential (05/03/2025 11:14 AM CDT) WBC 12.83(H) 3.80 - 9.90 K/cumm Hgb 15.6 13.0 - 17.5 g/dL [facility] ([place]) Hct 46.0 38.9 - 50.3 % [facility]) Plt 407(H) 150 - 400 K/cumm [facility] ([place]) MPV 10.6 9.1 - 12.3 fL [facility] ([place]) RBC 4.86 4.30 - 5.80 M/cumm [facility] ([place]) MCV 94.7 81.3 - 96.4 fL [facility] ([place]) MCH 32.1 27.1 - 33.3 pg [facility] ([place]) MCHC 33.9 32.3 - 35.7 g/dL [facility] ([place]) RDW CV 13.2 11.1 - 14.9 % [facility] ([place]) RDW SD 46.2 35.7 - 48.1 fL [facility] ([place]) NRBC abs 0.00 0.00 - 0.01 K/cumm [facility] ([place]) Blood 05/03/2025 11:1 4 AM CDT 05/03/2025 11:20 AM CDT Ta Rebolledo MD LAB BLOOD ORDERABLES Final R esult [facility] ([place]) [facility] Department [place] [address] * (ABNORMAL) Comprehensive metabolic panel (05/03/2025 11:14 AM CDT) Sodium 138 135 - 145 mmol/L Potassium, pl 4.4 3.3 - 4.9 mmol/L [facility]) Chloride 99 97 - 110 mmol/L [facility]) CO2 26 22 - 32 mmol/L [facility]) Anion gap 12 2 - 15 mmol/L [facility] ([place]) BUN 20 6 - 25 mg/dL [facility] ([place]) Creatinine 1.17 0.80 - 1.30 mg/dL [facility] ([place]) Comment:Icteric sample, test results may be affected. Glucose 85 70 - 199 mg/dL [facility] ([place]) Comment: Interpretive Data Fasting glucose >/= 126 mg/dl is diagnostic for diabetes. Fasting is defined as no caloric intake for at least 8 hours. Fasting glucose between 100 mg/dl to 125 mg/dl is diagnostic of prediabetes. In a patient with classic symptoms of hyperglycemia or hyperglycemic crisis, a random glucose >/= 200 mg/dl is diagnostic for diabetes. In the absence of unequivocal hyperglycemia, results should be confirmed by repeat testing. The classification and Diagnosis of Diabetes Diabetes Care 202; 46: S19-S40. Current interpretive data was last revised 2022. Calcium 9.1 8.5 - 10.3 mg/dL [facility]) Bilirubin, total 1.2 0.1 - 1.2 mg/dL [facility] ([place]) Protein, pl 6.2(L) 6.5 - 8.5 g/dL [facility] ([place]) Albumin 3.6 3.5 - 5.0 g/dL [facility] ([place]) Alk phos 41 40 - 130 Units/L [facility] ([place]) ALT 29 7 - 55 Units/L [facility]) AST 30 10 - 50 Units/L [facility] ([place]) Comment:Slightly Hemolyzed S pecimen Blood 05/03/2025 11:1 4 AM CDT 05/03/2025 11:20 AM CDT Ta Rebolledo MD LAB BLOOD ORDERABLES Final R esult Performing Organization Address City/[facility] Co de Phone Number [facility] ([place]) [address] [facility] Department [place] [address] * ECG 12 lead (05/03/2025 11:12 AM CDT) 05/03/2025 11:1 2 AM CDT Narrative [facility] - 05/03/2025 1:59 PM CDT Vent Rate: 66 bpm RR Interval: 901 msec MO Interval: 197 msec QRS Duration: 85 msec QT Interval: 394 msec QTC Interval: 408 msec P-R-T [place]: 58 - -22 - -27 degrees IMPRESSION: SINUS RHYTHM BORDERLINE LEFT AXIS DEVIATION [QRS AXIS < -20] MINIMAL VOLTAGE CRITERIA FOR LVH, CONSIDER NORMAL VARIANT [MEETS CRITERIA IN ONE OF: R(aVL), S(V1), R(V5), R(V5/V6)+S(V1)] BORDERLINE ECG NO CHANGE FROM PREVIOUS TRACING NOTED Electronically Signed By: Namrata Jacobs MD Ta Rebolledo MD ECG ORDERABLES Final Result Performing Organization Address [facility] Phone Number [facility] * ECG 12-LEAD (05/03/2025 9:45 AM CDT) 05/03/2025 9:45 AM CDT Narrative Melinda Mcgowan MD - 05/03/2025 10:54 AM CDT Melinda Mcgowan MD 05/03/2025 10:55 AM ECG 12 lead Date/Time: 05/03/2025 10:54 AM Performed by: Melinda Mcgowan MD Authorized by: Melinda Mcgowan MD Comparison: compared with previous ECG from 04/04/2025 Similar to previous ECG Rhythm: sinus rhythm Rate: normal QRS axis: normal ST Segments: ST segments normal T Waves: T waves normal Other: no other findings Clinical impression: normal ECG Comments: Normal EKG without acute ischemic changes unchanged from March 2025 us Melinda Mcgowan MD ECG ORDERABLES Edited Res ult - Final * PSA, total and free (04/25/2025 8:02 AM CDT) PSA <0.1 < OR = 4.0 ng/mL Teqcycle PSA, free <0.1 ng/mL Teqcycle PSA, free UNABLE TO CALCULATE >25 % (calc) Teqcycle Comment: The free PSA level is below detectable limits. We are unable to calculate a % free PSA. PSA(ng/mL) Free PSA(%) Estimated(x) Probability of Cancer(as%) 0-2.5 (*) Approx. 1 2.6-4.0(1) 0-27(2) 24(3) 4.1-10(4) 0-10 56 11-15 28 16-20 20 21-25 16 >or =26 8 >10(+) N/A >50 References:(1)Niyaona et al.:Urology 60: 469-474 (2001) (2)Catalona et al.:J.Urol 168: 922-925 (2001) Free PSA(%) Sensitivity(%) Specificity(%) < or = 25 85 19 < or = 30 93 9 (3)Catalona et al.:ARABELLA 277: 1587-3140 (1996) (4)Catalona et al.:ARABELLA 279: 5489-2154 (1997) (x)These estimates vary with age, ethnicity, family history and TEO results. (*)The diagnostic usefulness of % Free PSA has not been established in patients with total PSA below 2.6 ng/mL (+)In men with PSA above 10 ng/mL, prostate cancer risk is determined by total PSA alone. The Total PSA value from this assay system is standardized against the equimolar PSA standard. The test result will be approximately 20% higher when compared to the WHO-standardized Total PSA (Siemens assay). Comparison of serial PSA results should be interpreted with this fact in mind. PSA was performed using the Latanya Conroe Immunoassay method. Values obtained from different assay methods cannot be used interchangeably. PSA levels, regardless of value, should not be interpreted as absolute evidence of the presence or absence of disease. Blood 04/25/2025 8:02 AM CDT 04/25/2025 8:02 AM CDT Narrative [facility] - 04/27/2025 1:48 PM CDT FASTING:YES FASTING: YES us Melinda Mcgowan MD LAB BLOOD ORDERABLES Final Result Performing Organization Address [facility] Co de Phone Number [facility] [address] [place] [address] * (ABNORMAL) Albumin Creatinine Ratio, Urine (04/25/2025 7:58 AM CDT) Pathologist [facility] Creatinine, ur 201 20 - 320 mg/dL [facility] Microalbumin, ur 42.8 See Note: mg/dL [facility] Comment: Reference Range: Reference Range Not established Verified by repeat analysis. Microalbumin/creat ratio 213(H) <30 mg/g creat [facility] Comment: The ADA defines abnormalities in albumin excretion as follows: Albuminuria Category Result (mg/g creatinine) Normal to Mildly increased <30 Moderately increased 30-299 Severely increased > OR = 300 The ADA recommends that at least two of three specimens collected within a 3-6 month period be abnormal before considering a patient to be within a diagnostic category. Urine 04/25/2025 7:58 AM CDT 04/25/2025 7:59 AM CDT Narrative [facility] - 04/26/2025 7:17 AM CDT FASTING:YES FASTING: YES us Melinda Mcgowan MD LAB URINE ORDERABLES Final Result Performing Organization Address [facility] Co de Phone Number [facility] [address] [place] [address] * Hepatitis B core antibody, total Blood (04/25/2025 7:58 AM CDT) Pathologist [facility] Hep B core IgG/IgM NON-REACTI VE NON-REACTI VE [facility] Comment: For additional information, please refer to http://[email or web address]/QAQ296 (This link is being provided for informational/ educational purposes only.) Blood 04/25/2025 7:58 AM CDT 04/25/2025 7:59 AM CDT Narrative [facility] - 04/26/2025 7:17 AM CDT FASTING:YES FASTING: YES Melinda Mcgowan MD LAB MICROBIOLOGY - GENERAL ORDERABLES Final Result Performing Organization Address City/[facility] Co de Phone Number [facility] [address] [place] [address] * Hepatitis B surface antibody (immune status) Blood (04/25/2025 7:58 AM CDT) HBsAb (immune status) NON-REACTI VE NON-REACTI VE [facility] Blood 04/25/2025 7:58 AM CDT 04/25/2025 7:59 AM CDT Narrative [facility] - 04/26/2025 7:17 AM CDT FASTING:YES FASTING: YES Melinda Mcgowan MD LAB MICROBIOLOGY - GENERAL ORDERABLES Final Result Performing Organization Address [facility] Co de Phone Number [facility] [address] [place] [address] * Hepatitis B Surface Antigen Blood (04/25/2025 7:58 AM CDT) HepBsAg NON-REACTI VE NON-REACTI VE [facility] Comment: For additional information, please refer to http://[email or web address]/ZPS356 (This link is being provided for informational/ educational purposes only.) Blood 04/25/2025 7:58 AM CDT 04/25/2025 7:59 AM CDT Narrative [facility] - 04/26/2025 7:17 AM CDT FASTING:YES FASTING: YES us Melinda Mcgowan MD LAB MICROBIOLOGY - GENERAL ORDERABLES Final Result [facility] [address] [place] [address] * Hemoglobin A1c (04/25/2025 7:58 AM CDT) Hgb A1C 5.4 <5.7 % of total Hgb [facility] Comment: For the purpose of screening for the presence of diabetes: <5.7% Consistent with the absence of diabetes 5.7-6.4% Consistent with increased risk for diabetes (prediabetes) > or =6.5% Consistent with diabetes This assay result is consistent with a decreased risk of diabetes. Currently, no consensus exists regarding use of hemoglobin A1c for diagnosis of diabetes in children. According to [place] Diabetes Association (ADA) guidelines, hemoglobin A1c <7.0% represents optimal control in non- diabetic patients. Different metrics may apply to specific patient populations. Standards of Medical Care in Diabetes(ADA). Blood 04/25/2025 7:58 AM CDT 04/25/2025 7:59 AM CDT Narrative [facility] - 04/26/2025 7:17 AM CDT FASTING:YES FASTING: YES us Melinda Mcgowan MD LAB BLOOD ORDERABLES Final Result Performing Organization Address City/[facility]/ZIP Co de Phone Number [facility] [address] [place] [address] * (ABNORMAL) Lipid panel (04/25/2025 7:58 AM CDT) Cholesterol 77 <200 mg/dL [facility] HDL 34(L) > OR = 40 mg/dL [facility] Triglycerides 84 <150 mg/dL [facility] LDL 27 mg/dL (calc) [facility] Comment: Reference range: <100 Desirable range <100 mg/dL for primary prevention; <70 mg/dL for patients with CHD or diabetic patients with > or = 2 CHD risk factors. LDL-C is now calculated using the Nicky calculation, which is a validated novel method providing better accuracy than the Friedewald equation in the estimation of LDL-C. Reyes JULIEN et al. ARABELLA. 2013;310(19): 5746-8077 (http://[employer]/faq/RRM854) Chol/HDL ratio 2.3 <5.0 (calc) [facility] Non-HDL, (LDL+VLDL) 43 <130 mg/dL (calc) [facility] Comment: For patients with diabetes plus 1 major ASCVD risk factor, treating to a non-HDL-C goal of <100 mg/dL (LDL-C of <70 mg/dL) is considered a therapeutic option. Blood 04/25/2025 7:58 AM CDT 04/25/2025 7:59 AM CDT Narrative [facility] - 04/26/2025 7:17 AM CDT FASTING:YES FASTING: YES Melinda Mcgowan MD LAB BLOOD ORDERABLES Final Result [facility] [address] [place] [address] * (ABNORMAL) Comprehensive metabolic panel (04/25/2025 7:58 AM CDT) [facility] Glucose 85 65 - 99 mg/dL [facility] Comment: Fasting reference interval BUN 17 7 - 25 mg/dL [facility] Creatinine 1.20 0.70 - 1.28 mg/dL [facility] eGFR 63 > OR = 60 mL/min/1.7 3m2 [facility] BUN/creat ratio SEE NOTE: 6 - 22 (calc) [facility] Comment: Not Reported: BUN and Creatinine are within reference range. Sodium 140 135 - 146 mmol/L [facility] Potassium, pl 4.2 3.5 - 5.3 mmol/L [facility] Chloride 104 98 - 110 mmol/L [facility] CO2 29 20 - 32 mmol/L [facility] Calcium 9.1 8.6 - 10.3 mg/dL [facility] Protein, sr 5.5(L) 6.1 - 8.1 g/dL [facility] Albumin 3.7 3.6 - 5.1 g/dL [facility] GLOBULIN 1.8(L) 1.9 - 3.7 g/dL (calc) [facility] Alb/glob ratio 2.1 1.0 - 2.5 (calc) [facility] Bilirubin, total 1.0 0.2 - 1.2 mg/dL [facility] Alk phos 38 35 - 144 U/L [facility] AST 22 10 - 35 U/L [facility] ALT (SGPT) 21 9 - 46 U/L [facility] Blood 04/25/2025 7:58 AM CDT 04/25/2025 7:59 AM CDT Narrative [facility] - 04/26/2025 7:17 AM CDT FASTING:YES FASTING: YES us Melinda Mcgowan MD LAB BLOOD ORDERABLES Final Result [facility] [id number] [place] [id number] * Colonoscopy (04/17/2025 10:33 AM CDT) Anatomical Region Laterality Modality Other Narrative Procedure Note Renata Lawson MD - 04/17/2025 10:33 AM CDT [facility] Patient Name: Luis Fernando Taylor Procedure Date: 04/17/2025 10:33 AM Date of : 1950 Admit Type: Outpatient Age: 75 Gender: Male Attending MD: Renata Lawson M.D. Room: [facility] ENDOSCOPY ROOM 1 Note Status: Finalized Patient Profile: This is a 75 year old male. History of adenomapolyps. No family history of colon cancer. Procedure: Colonoscopy Indications: Surveillance: Personal history of colonic polyps (unknown histology) on last colonoscopy more than 5 years ago, Last colonoscopy: 2016 Referring MD: Melinda Mcgowan M.D. Providers: Renata Lawson M.D. Impression: - One 14 mm polyp in the cecum, removed with a cold snare. Resected and retrieved. Clip (MRconditional) was placed. 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 - Diverticulosis in the sigmoid colon. - Internal hemorrhoids. Recommendation: - Await pathology results. - Repeat colonoscopy in 3 years for surveillance. - Continue present medications. Medicines: Monitored Anesthesia Care Complications: No immediate complications. Estimated Blood Loss: Estimated blood loss: none. Procedure: Pre-Anesthesia Assessment: - Prior to the procedure, a History and Physicalwas performed, and patient medications and allergieswere reviewed. The patient's tolerance of previous anesthesia was also reviewed. The risks andbenefits of the procedure and the sedation options and risks were discussed with the patient. All questions were answered, and informed consent was obtained. Prior Anticoagulants: The patient has taken noanticoagulant or antiplatelet agents. ASA Grade Assessment: Per anesthesia note and evaluation. After reviewing the risks and benefits, the patient was deemed in satisfactory condition to undergo the procedure. The benefits, risks and alternatives of theprocedure and sedation were discussed and informed consentwas obtained. All questions were answered. Please referto the signed informed consent document in the medical record. The bowel preparation used was Miralax via split dose instruction. The bowel preparation usedwas bisacodyl tablets via split dose instruction. The scope was passed under direct vision. The Pediatric Colonoscope PCF-H190L [id number] was introducedthrough the anus and advanced to the the cecum, identifiedby appendiceal orifice and ileocecal valve. Thequality of the bowel preparation was good. Bowel prep was administered using a split dose. Findings: The perianal and digital rectal examinations were normal. The appendiceal orifice appeared normal. A 14 mm polyp was found in the cecum. The polyp was sessile. Thepolyp was removed with a cold snare. Resection and retrieval were complete.To prevent bleeding after the polypectomy, one hemostatic clip was successfully placed (MR conditional). 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 There was no bleeding at the end of the procedure. The descending colon, transverse colon and ascending colon appeared normal. Many small-mouthed diverticula were found in the sigmoid colon. Internal hemorrhoids were found during retroflexion. The hemorrhoids were small. Electronically signed by Renata Lawson M.D. Renata Lawson M.D. 04/17/2025 1:10:08 PM Number of Addenda: 0 Note Initiated On: 04/17/2025 10:33 AM Procedure Code(s): --- Professional --- 19975, Colonoscopy, flexible; with removal of tumor(s), polyp(s), or other lesion(s) by snare technique Diagnosis Code(s): --- Professional --- Z86.010, Personal history of colonic polyps K64.8, Other hemorrhoids D12.0, Benign neoplasm of cecum K57.30, Diverticulosis of large intestine without perforation orabscess without bleeding CPT copyright 2020 [employer]. All rights reserved. The codes documented in this report are preliminary and upon rn orthopaedics reviewmay be revised to meet current compliance requirements. Recognized by the [employer] for promoting quality in endoscopy Renata Lawson MD ENDOSCOPY PROCEDURES Final Result * Surgical pathology (04/17/2025 9:40 AM CDT) Tissue (Polyp(s), colon/colorectal, esophageal, gastric) 04/17/2025 12:57 PM CDT Narrative PATHOLOGY [facility] ([facility]) - 04/19/2025 10:16 AM CDT EPIC results best viewed via link to PDF [facility] Department of Pathology [address] [place] [address] Note to Patients: This report may contain a detailed description of human tissue sent by a health care provider to the laboratory for pathologic evaluation. The content of this report is essential for diagnosis and may provide important critical findings. This information may be unfamiliar to patients to review without a medical professional present. It is advised that the patient review this report in the presence of a health care provider who can answer questions and explain the details. Final Report Patient Name: LUIS FERNANDO TAYLOR Address: [address] [place] [address] Gender: M : 1950 (Age: 75) Service: Gastro Location: [facility] Hospital #: [id number] Patient Type: [facility] Taken: 04/17/2025 Received: 04/18/2025 Accessioned: 04/18/2025 Reported: 04/19/2025 Physician(s):Dr. Renata Lawson M.D. Diagnosis: Colon, cecum, biopsy: - Tubular adenoma. - No evidence of high-grade dysplasia or malignancy. Jamie Sharma MD Report Electronically Reviewed and Signed Out By Jamie Sharma MD 04/19/2025 10:16:41 Specimen(s) Received: A: Cecum polyp x 1 Microscopic Description: Microscopic examination shows a polypoid fragment of colonic mucosa with adenomatous mucosal changes consistent with a tubular adenoma. There is no evidence of high-grade dysplasia or malignancy. Clinical History: Cecum polyp x 1. Colonoscopy. Gross Description: The specimen is submitted in a single formalin filled container labeled LUIS FERNANDO TAYLOR and cecum polyp. It is 1 munguia polypoid tissue fragment measuring 7 mm. All in one cassette. Inge Arauz R.N., P.A./Fiorella Basurto M.D. REPORT IMAGES AND SCANNED DOCUMENTS, IF INCLUDED, ONLY VIEWABLE IN PDF VERSION OF REPORT The performance characteristics of some immunohistochemical stains, fluorescence in-situ hybridization tests and immunophenotyping by flow cytometry cited in this report (if any) were determined by the Surgical Pathology Department at [facility] as part of an ongoing quality assurance supervisor chassis program and in compliance with federally mandated regulations drawn from the Clinical Laboratory Improvement Act of 1988 (CLIA '88). Some of these tests rely on the use of analyte specific reagents and are subject to specific labeling requirements by the US Food and Drug Administration. Such diagnostic tests may only be performed in a facility that is certified by the Department of Health and Human Services as a high complexity laboratory under CLIA '88. The FDA has determined that such clearance or approval is not necessary. This test is used for clinical purposes. It should not be regarded as investigational or for research. Nevertheless, federal rules concerning the medical use of analyte specific reagents require that the following disclaimer be attached to the report: This test was developed and its performance characteristics determined by the Surgical Pathology Department [facility]. It has not been cleared or approved by the U. S. Food and Drug Administration. Note for decalcified specimens: This assay has not been validated on decalcified tissues. Results should be interpreted with caution given the possibility of false negativity on decalcified specimens Renata Lawson MD LAB PATHOLOGY ORDERABLES F inal Result Performing Organization Address City/State/[facility] Co de Phone Number PATHOLOGY [facility] ([facility] [address] [place] [address] * DIABETES EYE EXAM (03/05/2025 9:45 AM CDT) SCRIBED DIABETIC DILATED EYE EXAM Normal Historical Provider HEALTH MAINTENANCE Final Result * CT Chest WO Contrast F/U Lung Screen Protocol (12/29/2024 11:05 AM WIRE WEAVER CLOTH) Anatomical Region Laterality Modality Chest N/A Computed Tomogra phy 01/01/2025 7:14 AM WIRE WEAVER CLOTH Narrative 01/01/2025 7:23 AM WIRE WEAVER CLOTH EXAM DESCRIPTION: CT CHEST WO CONTRAST F/U LUNG SCREEN PROTOCOL REASON FOR STUDY: Screening CT of the chest in a current smoker with a 27.5 pack year smoking history. Additional history: Patient diagnosed with COVID in September 2024, though no symptomatology. History of prostate carcinoma. TECHNIQUE: Low dose CT scan of the chest was performed without intravenous contrast using helical scanning technique. The exam extends from the lung apices through the lung bases. Automatic exposure control was used as a dose optimization technique. NOTE: This study was performed for the specific purposes of lung cancer screening and is not an alternative to diagnostic chest CT. RADIATION DOSE: CT dose index volume (CTDIvol) = 1.51 mGy COMPARISON: 11/17/2024, 11/08/2023 and 11/07/2022 FINDINGS: SMOKING RELATED LUNG DISEASE: Mild emphysema. Trace pleuroparenchymal scarring. Wall thickening as can be seen with bronchitis/bronchiolitis. Mild secretions are noted. LUNG NODULES: The previously documented patchy nodular airspace opacity within the medial right lower lobe has improved. Subtle nodule on image number 207 measures 2 mm, previously 4-5 mm, most consistent with resolving infectious/inflammatory process. Additional previously documented nodules are as follows: 2 mm nodule lateral right major fissure image 128, stable. Stable 3 mm juxta fissural nodule right middle lobe image 146. Stable 5 mm nodule left lower lobe abutting the fissure, image 124. No new suspicious nodule within either lung. CORONARY ARTERY CALCIFICATION: Present. OTHER: There is no pneumonic consolidation. Subsegmental scarring/atelectasis. No effusion or pneumothorax. The thyroid gland is unremarkable. There is no mediastinal or hilar lymphadenopathy. The esophagus is unremarkable. The heart is normal in size without pericardial effusion. There are coronary artery calcifications. Changes of CABG. Thoracic aorta is atherosclerotic, without aneurysm. No axillary lymphadenopathy. The chest wall is unremarkable. Bilateral gynecomastia. The visualized upper abdomen reveals atherosclerotic vascular calcifications. There is diverticulosis. There is cervical and thoracic spondylosis with degenerative disc disease. IMPRESSION: Interval improvement in previously documented patchy nodular airspace opacity within the medial right lower lobe consistent with resolving infectious/inflammatory etiology.. Additional previously documented pulmonary nodules are stable. No new suspicious nodularity. Mild emphysema. Bronchial wall thickening as can be seen with bronchitis/bronchiolitis. Coronary artery calcifications. Additional findings as above. Lung-RADS category 2: Benign appearance or behavior. Recommendation: Low dose Screening CT of chest in 12 months. THIS IS AN ELECTRONICALLY VERIFIED FINAL REPORT 01/01/2025 7:23 AM - Electronically signed by Kirstin Bledsoe M.D. TW: TW Report ID: [id number] Reading Location: [id number] Procedure Note Kirstin Bledsoe MD - 01/01/2025 EXAM DESCRIPTION: CT CHEST WO CONTRAST F/U LUNG SCREEN PROTOCOL REASON FOR STUDY: Screening CT of the chest in a current smoker with a 27.5 pack year smoking history. Additional history: Patient diagnosedwith COVID in September 2024, though no symptomatology. History of prostate carcinoma. TECHNIQUE: Low dose CT scan of the chest was performed without intravenous contrast using helical scanning technique. The exam extends from the lung apices through the lung bases. Automatic exposure control was used as adose optimization technique. NOTE: This study was performed for the specific purposes of lung cancer screening and is not an alternative to diagnostic chest CT. RADIATION DOSE: CT dose index volume (CTDIvol) = 1.51 mGy COMPARISON: 11/17/2024, 11/08/2023 and 11/07/2022 FINDINGS: SMOKING RELATED LUNG DISEASE: Mild emphysema. Trace pleuroparenchymal scarring. Wall thickening as can be seen with bronchitis/bronchiolitis.Mild secretions are noted. LUNG NODULES: The previously documented patchy nodular airspace opacity within the medial right lower lobe has improved. Subtle nodule on image number 207 measures 2 mm, previously 4-5 mm, most consistent withresolving infectious/inflammatory process. Additional previously documented nodules are as follows: 2 mm nodule lateral right major fissure image 128, stable. Stable 3 mm juxta fissural nodule right middle lobe image 146. Stable 5 mm nodule left lower lobe abutting the fissure, image 124. No new suspicious nodule within either lung. CORONARY ARTERY CALCIFICATION: Present. OTHER: There is no pneumonic consolidation. Subsegmental scarring/atelectasis. No effusion or pneumothorax. The thyroid gland is unremarkable. There is no mediastinal or hilar lymphadenopathy. The esophagus is unremarkable. The heart is normal in size withoutpericardial effusion. There are coronary artery calcifications. Changes of CABG. Thoracic aorta is atherosclerotic, without aneurysm. No axillary lymphadenopathy. The chest wall is unremarkable. Bilateral gynecomastia. The visualized upper abdomen reveals atherosclerotic vascularcalcifications. There is diverticulosis. There is cervical and thoracic spondylosis with degenerative disc disease. IMPRESSION: Interval improvement in previously documented patchy nodular airspaceopacity within the medial right lower lobe consistent with resolving infectious/inflammatory etiology.. Additional previously documented pulmonary nodules are stable. No new suspicious nodularity. Mild emphysema. Bronchial wall thickening as can be seen with bronchitis/bronchiolitis. Coronary artery calcifications. Additional findings as above. Lung-RADS category 2: Benign appearance or behavior. Recommendation: Low dose Screening CT of chest in 12 months. THIS IS AN ELECTRONICALLY VERIFIED FINAL REPORT 01/01/2025 7:23 AM - Electronically signed by Kirstin Bledsoe M.D. TW: TW Report ID: [id number] Reading Location: [place] [address] us Robby Meier MD IMG CT PROCEDURES Final Result * Hepatitis C antibody (10/08/2017 7:51 AM WIRE WEAVER CLOTH) Hep C Ab NON-REACTI VE NON-REACTI VE [facility] [place] SIGNAL TO CUT-OFF 0.02 <1.00 [facility] [place] Blood specimen (specimen) 10/08/2017 7:51 AM WIRE WEAVER CLOTH 10/08/2017 7:55 AM WIRE WEAVER CLOTH Narrative [facility] - 10/09/2017 10:03 AM WIRE WEAVER CLOTH FASTING:YES Resulting Agency Comment Performing Organization Information: Site ID: [id number] Name: [facility] Address: [address] [place] [id number] Director: Nash Marinelli D.O., MPH us Melinda Mcgowan MD LAB MICROBIOLOGY - GENERAL ORDERABLES Final Result [facility] [place] Kumar from Last 3 Months or Most Recently Relevant to Health Maintenance Insurance FOR LIFE MEDICARE MEDICARE [facility] FOR LIFE [facility] MEDICARE ADVANTAGE MEDICARE FOR LIFE FOR LIFE [facility] MEDICARE ADVANTAGE Advance Directives For more information, please contact: [phone] Documents on File Type Date Recorded 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 Expl 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 ADVANCE DIRECTIVE 08/11/2019 1:22 PM DNR ADVANCE DIRECTIVE 08/11/2019 1:22 PM MARCIA WHYTE ADVANCE DIRECTIVE 05/13/2012 POWER OF A [facility] * Full Code (Latest Code Status on File) Date Activated Date Inactivated Comments 05/03/2025 1:15 PM 05/04/2025 4:24 PM * Full Code Date Activated Date Inactivated Comments 04/17/2025 10:36 AM 04/17/2025 5:38 PM * Full Code Date Activated Date Inactivated Comments 04/17/2025 10:36 AM 04/17/2025 10:36 AM * LIMITED - No CPR Date Activated Date Inactivated Comments 07/27/2022 10:57 AM 07/28/2022 11:03 PM Question Answer Comments Provide aggressive medical m anagement before a full cardiopulmonary arrest occurs. 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 Relationship Specialty Start Date End Date Melinda Mcgowan MD PCP - General 02/19/17 Jax Lara MD [address] [place] [address] [address] [place] [address] Urology 05/15/17 Renata Lawson MD [address] [place] [address] [address] [place] [address] Gastroenterology 05/17/17 Mei Bradford MD [address] [place] [address] [address] [place] [address] Neurology 05/17/17 Rodney Buckley OD [address] [place] [address] Optometry 10/26/17 Marlee Herman MD [address] [place] [address] Surgeon Cardiothoracic Surgery 07/04/21 Loan Felix MD [address] [place] [address] [address] [place] [address] Anesthesiologist Pain Management 10/14/22 John Luo MD [address] [place] [address] Referring Physician Ophthalmology 05/03/25 Namrata Jacobs MD [address] [place] [address] Consulting Physician Cardiology 05/03/25
--- OUTSIDE RECORDS SUMMARY | 2025-07-08 18:12 | XMS_ITS | Continuity of Care Document ---
Author Organization [facility] Address [address] [place] [address] Phone Care Team Providers Care Print Line Feeder Name Role Phone Yvon Ramires MD Unavailable Unavailable Allergies, Adverse Reactions, Alerts Substance Reaction Status Criticality penicillin G Active No Information Medications Medication Instructions Dosage Effective Dates (start - stop) Status Comments tobramycin 0.3 %-dexamethasone 0.1 % eye drops,suspension instill 1 drop by ophthalmic route 4 times every day in both eyes for 5 days, then 2 times every day in both eyes for 5 days, then stop - Active amlodipine 10 mg tablet take 1 tablet by oral route every day 10 MG - Active BUFFERIN (unknown strength) Not Available - Active Flonase 50 mcg/actuation nasal spray,suspension spray 1 spray by intranasal route every day in each nostril - Active indapamide 1.25 mg tablet take 1 tablet by oral route every day in the morning 1.25 MG - Active Lipitor 10 mg tablet take 1 tablet by oral route every day 10 MG - Active Procedures Procedure Date Eye Exam, New Patient Visual Field Examination(s) No Charge Pachymetry Advance Directives Directive Yes / No Effective Date File Name No Information Encounters Encounter Description Practice Location Reason(s) For Visit Diagnoses Date Provider Providers Copied on Encounter [facility], [address], [place], [place], [id number], [place] tel:[phone] SEC Ben CAMPOS Professional No Information [facility]. [address], [address], [place], [place], [id number], [place]. tel:[phone] [facility], [address], [place], [place], [id number], [place] tel:[phone] SEC [facility] Professional Redness (chief complaint) Meibomian gland dysfunctionSe nile nuclear sclerosisLatt ice degeneration [facility]. [address], [address], [place], [place], [address], [place]. tel:[phone] Referring Provider: Melinda Mcgowan MD, [address], [place], [address]. tel:[phone] Family History Family Member Type Diagnosis Age At Onset Problem (finding) Family history of Diabe aminata mellitus Payers Payer name Insurance type Covered libertarian ID Authoriza tion(s) Medicare [facility] [id number] [facility] [id number] Social History Type Description Quantity Date Captured Comments Alcohol Use Details Caffeine Use Details 2 cups per day Tobacco Use Status Smoking Status Current every day smoker Non-Smoking Tobacco Use Details : No Details Available : No Details Available Sex Male Chief Complaint And Reason For Visit No Information Reason For Referral Reason For Referral No Information History Of Present Illness Encounter Date Complaint History Of Prese nt Illness Redness The 65 year old male presents for a glaucoma evaluation per Dr. Mcgowan. Patient states eyes are red. Patient wears OTC. Patient had a stroke a year ago and states vision seems better. Functional Status Date Functional Assessmen t No Information Instructions Date Instruction Additional Infor mation - Discussed diagnosi s in detail with patient. IOP slightly elevated OD, with no signs of glaucoma. Normal visual ennis results. Will continue to monitor. Cataracts, no treatment currently recommended. The patient will monitor vision changes and contact us with any decrease in vision. Discussed MGD, recommend warm compress and massage, pt aware this may need to be daily to maintain condition. Start Tobramycin/Dexa QID OU x5 days, then BID x5 days then stop. Erx sent to [facility]. Instructed patient to call office if symptoms do not improve. Recommend OTC readers for near. Rx for glasses not needed at this time. Return to clinic in 1 year for complete exam or sooner with any problems. Related to See list of assessments above Meibomian gland dysf unction - Educational material given Related to Meibomian gland dysfunction - Return in 1 year w doug Ramires M.D. for Complete Exam Related to See list of assessments above Assessments Type Assessment Date No Information Patient Care Teams Name Effective Dates (start - stop) Status Members No Information
--- OUTSIDE RECORDS SUMMARY | 2025-07-08 18:12 | XMS_ITS | Clinical Summary ---
Author Organization [facility] Care Team Providers Care Mgmt Analyst Name Role Phone Melinda Mcgowan MD Primary Care Provider Allergies Active Allergy Reactions Criticality Noted Date Comments Lisinopril Other (see Comments) Low 06/24/2018 Cashion Oil Anaphylaxis High Reaction: ANAPHYLAXIS Penicillins Hives,Rash Spironolactone Other (see Comments) Low 06/24/2018 The bilateral tender enlarged breast with nodules resolved off the Aldactone Medications aspirin EC 81 MG PO TBEC Take by mouth. Activ e atorvastatin (LIPITOR) 10 MG PO TABS Take by mouth. Activ e indapamide 1.25 MG PO TABS Take by mouth. Acti ve fluticasone (FLONASE) 50 MCG/ACT NA SUSP by Nasal route. Use in each nostril as directed. Active amLODIPine 10 MG PO TABS Take by mouth. Activ e albuterol (2.5 MG/3ML) 0.083% IN NEBU by Nebulization route. Active eplerenone (INSPRA) 25 MG Tablet 0 Active losartan (COZAAR) 100 MG Tablet TK ONE T PO QD 0 Active albuterol (ProAir HFA) 108 (90 Base) MCG/ACT Aerosol SolutionIndicati ons:Cough,Chroni c obstructive pulmonary disease with acute exacerbation (HCC),Asthma with acute exacerbation, unspecified asthma severity, unspecified whether persistent take 2 Puffs by inhalation every 4 hours as needed for Wheezing. 8.5 g 0 Active Active Problems Problem Noted Date Diagnosed Date Palpitations 10/21/2020 Nephrotic syndrome 05/03/2019 Overview (11/07/2020): Biopsy (+) for membranous GN followed by FELIBERTO Vaca Last Assessment & Plan: Patient has been follow with nephrology and had recent visit at which time his lasix dose was increased and eplerenone added. We are awaiting recent labs from their office. Chronic obstructive pulmonary disease 07/08/2018 High blood pressure 07/08/2018 Class 3 severe obesity due t o excess calories with serious comorbidity and body mass index (BMI) of 40.0 to 44.9 in adult 07/08/2018 Incisional hernia, without obstruction or gangre ne 07/08/2018 Episodic mood disorder 12/23/2017 Overview (11/07/2020): Last Assessment & Plan: He remains on cymbalta, but states that he still suffers with issues of depression. Suggested with patient the addition of Wellbutrin, but he has taken in the pst and not tolerated. He wishes to discuss more and his upcoming follow up with Dr. Mcgowan. ED (erectile dysfunction) of organic origin 12/2016 Ischemic heart disease due to coronary artery ob struction 10/23/2017 Overview (11/07/2020): Stress test (-) November 25, 2017 TECHNIQUE: [...] by: aamir On: Mar 03 2017 7:58P Hx of adenomatous colonic polyps 06/14/2017 Overview (11/07/2020): Overview: Renny: EGD with acid reflux erosive gastritis May 2017 Allendorph: Adenomatous colon polyps (+) 2001, (+) 2005, (-) [address] Lawson for colonoscopy May 2017 History of kidney stones 05/15/2017 Overview (11/07/2020): Overview: Diagnosed in emergency room July 2014 History of prostate cancer 05/15/2017 Overview (11/07/2020): Overview: Diagnosis December 2014 with Adams score 7 T2 PN 0 M 0 stage II INDICATION FOR PROCEDURE: The patient is a 65-year-old gentleman who has organ- confined prostate cancer, a Caldwell 3+4 adenocarcinoma of the prostate in 4 of 12 biopsy cores. He was taken to the operating room for robotic prostatectomy with pelvic lymph node dissection. PROCEDURE PERFORMED: 1. Robotic-assisted laparoscopic prostatectomy. 2. Robotic-assisted laparoscopic bilateral pelvic lymphadenectomy. 3. Robotic assisted laparoscopic Dr. Igor Chowdary. History of stroke without residual deficits 04/23 Overview (11/07/2020): Overview: January 2014 lacunar stroke. 40-60% carotid stenosis. Multiple cardiac risk factors addressed once again at that time. Multiple-type hyperlipidemia 04/07/2014 Overview (11/07/2020): Overview: Hyperlipemia, mixed Obesity (BMI 30-39.9) 04/07/2014 Overview (11/07/2020): Overview: Obesity VÍCTOR (obstructive sleep apnea) 04/07/2014 Overview (11/07/2020): Overview: Referred to Dr. Bradford 04/2017-- never went to the appointment CPAP titration study 2013 confirmed BiPAP /16..PLAN: 1) Nasal BiPAP at a pressure of [...] the periodic limb movements. Ashlee Rudolph M.D. Periodontal disease 04/07/2014 Overview (11/07/2020): Overview: Periodontal disease Tobacco dependence syndrome 04/07/2014 Overview (11/07/2020): Tobacco abuse Last Assessment & Plan: Cessation encouraged. Family History Medical History Relation Name Comments Diabetes Brother Hypertension Brother Heart Attack Father Diabetes Maternal Grandfather Hypertension Maternal Grandfather Diabetes Maternal Grandmother Hypertension Maternal Grandmother Diabetes Mother Hypertension Mother Diabetes Sister Hypertension Sister Relation Name Status Comments Brother Father Maternal Grandfather Maternal Grandmother Mother Sister Social History Tobacco Use Types Packs/Day Years Used Date Smoking Tobacco: Every Day Cigarettes Smokeless Tobacco: Never Tobacco Cessation:Ready to Q uit: No; Counseling Given: Yes Alcohol Use Standard Drinks/Week Comments Yes 0 (1 standard drink = 0.6 oz pur e alcohol) occasional Sex and Gender Information Value Date Recorded Sex Assigned at Not on file Legal Sex Male 1:03 PM CDT Gender Identity Not on file Sexual Orientation Not on file Last Filed Vital Signs Vital Sign Reading Time Taken Comments Blood Pressure 142/80 11/07/2020 1:48 PM ARMHOLE BASTER JUMPBASTING Pulse 67 11/07/2020 1:48 PM ARMHOLE BASTER JUMPBASTING Temperature 36.5 C (97.7 F) 11/07/2020 1:48 PM ARMHOLE BASTER JUMPBASTING Respiratory Rate 24 11/07/2020 1:48 PM ARMHOLE BASTER JUMPBASTING Oxygen Saturation 96% 11/07/2020 1:48 PM ARMHOLE BASTER JUMPBASTING Inhaled Oxygen Concentration - - Weight 106.6 kg (235 lb) 11/07/2020 1:48 PM ARMHOLE BASTER JUMPBASTING Height 172.7 cm (5' 8) 07/08/2018 8:54 AM CDT Body Mass Index 35.73 07/08/2018 8:54 AM CDT Plan of Treatment Health Maintenance Due Date Last Done Comments Hepatitis C Virus (HCV) Screening 1950 TdaP Immunization 1950 Pneumococcal Immunization (50+ years) (1 of 2 - PCV) 02/11/1968 Zoster Immunization (1 of 2) 1999 Respiratory Syncytial Virus (RSV) Immunization (Adult) (1 - 1-dose 75+ series) 02/11/2024 SARS-COV-2 Immunization (2023- season) 2024 11/17/2021, 03/01/2021, 02/04/2021 Influenza Immunization (#1) 07/23/202506/23, 09/27/2019, 08/19/2018, Additional history exists Hepatitis B Immunization Aged Out No longer eligible based on patient's age to complete this topic Human Papillomavirus (HPV) Immunization Aged Out No longer eligible based on patient's age to complete this topic Meningococcal Immunization (ACWY) Aged Out No longer eligible based on patient's age to complete this topic Rotavirus Immunization Aged Out No lo nger eligible based on patient's age to complete this topic Insurance [employer] MEDICARE Care Teams Mgmt Analyst Relationship Specialty Start Date End Date Melinda Mcgowan MD [address] [place] [address] PCP - General Internal Medicine 07/08/18
--- OUTSIDE RECORDS SUMMARY | 2025-07-08 18:12 | XMS_ITS | Encounter Summary ---
Author Organization [facility] Healthcare Address [address] [place] [address] Care Team Providers Care Ventilating Equipment Installer Name Role Phone Melinda Mcgowan MD Primary Care Provider + [phone] Jax Lara MD Unavailable [phone] Renata Lawson MD Unavailable [phone] Mei Bradford MD Unavailable Rodney Buckley OD Unavailable Marlee Herman MD Unavailable [phone] Gabriel Felix MD Unavailable [phone] John Luo MD Unavailable [phone] Florentino Jacobs MD Unavailable [phone] Encounter Details Date Type Department Care Team (Latest Contact Info) Description 06/27/2025 Results Follow-Up [facility] at [address] [place] [id number] Jesus [address] Sams MA [address] Abdomen Pelvis WO Contrast Social History Tobacco Use Types Packs/Day Years [...] on file 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 Gender Identity Not on file Sexual Orientation Not on file 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 Not on file [...] on filedocumented in this encounter Care Teams Ventilating Equipment Installer Relationship Specialty Start Date End Date Melinda Mcgowan MD PCP - General 02/19/17 Jax Lara MD [address] [place] [address] [address] [place] [id number] Urology 05/15/17 Renata Lawson MD [address] [address] [place] [address] Gastroenterology 05/17/17 Mei Bradford MD [address] [place] [address] Neurology 05/17/17 Rodney Buckley, COLE [address] [place] [address] Optometry 10/26/17 Marlee Herman MD [address] [place] [address] Surgeon Cardiothoracic Surgery 07/04/21 Gabriel Felix MD [address] [place] [address] [address] [place] [address] Anesthesiologist Pain Management 10/14/22 John Luo MD [address] [place] [address] Referring Physician Ophthalmology 05/03/25 Florentino Jacobs MD [address] [place] [address] [address] [place] [address] Consulting Physician Cardiology 05/03/25 documented as of this encounter
--- OUTSIDE RECORDS SUMMARY | 2025-07-08 18:12 | XMS_ITS | Clinical Summary ---
Author Organization [facility] Facility Address [address] [place] [address] Care Team Providers Care Clinical Pharmacy Coordinator Name Role Phone Unavailable Primary Care Provider Unavailabl e Family History Medical History Relation Comments Cancer Father Heart disease Father Hypertension Father Kidney disease Father Diabetes Sibling Relation Status Comments Father Mother Sibling Social History Tobacco Use Types Packs/Day Years Used Date Smoking Tobacco: Every Day Alcohol Use Standard Drinks/Week Comments Yes 0 (1 standard drink = 0.6 oz pure alcohol) Alcoholic Drinks/day: Occasional social drink Sex and Gender Information Value Date Recorded Sex Assigned at Not on file Legal Sex Male 2:50 PM EDT Gender Identity Not on file Sexual Orientation Not on file Last Filed Vital Signs Vital Sign Reading Time Taken Comments Blood Pressure 118/82 09/25/2020 12:00 PM RESPIRATORY MANAGER Pulse 83 09/25/2020 12:00 PM RESPIRATORY MANAGER Temperature 36.2 C (97.1 F) 09/25/2020 12:00 PM RESPIRATORY MANAGER Respiratory Rate 18 09/25/2020 12:00 PM RESPIRATORY MANAGER Oxygen Saturation 97% 09/25/2020 12:00 PM RESPIRATORY MANAGER Inhaled Oxygen Concentration - - Weight 107 kg (235 lb) 09/25/2020 12:00 PM RESPIRATORY MANAGER Height 172.7 cm (5' 8) 09/25/2020 12:00 PM RESPIRATORY MANAGER Body Mass Index 35.73 09/25/2020 12:00 PM RESPIRATORY MANAGER Plan of Treatment Health Maintenance Due Date Last Done Comments Diabetes: Ophthalmology Exam 12/05/2024 Diabetes: Pedal Pulse Checked 12/05/2024 Diabetes: Sensory Foot Exam 12/05/2024 Diabetes: Visual Foot Exam 12/05/2024 Influenza Vaccine (#1) 2025 , 07/20/2020, 09/27/2019, Additional history exists Diabetes: Hemoglobin A1C 07/26/2025 04/25/2025, 09/22 Pneumococcal Vaccine: 50+ Years Completed 05/08/2017, 08/11/2016, 11/06/2014 Colorectal Cancer Screening: Colonoscopy Discontinued 04/17/2025 Hepatitis B Vaccine Aged Out No longe r eligible based on patient's age to complete this topic
--- NOTE | 2025-07-08 18:56 | ED_ITS ---
HPI - Dental/Oral General Chief complaint: Dental/Oral Stated complaint: Toothache Source: patient Mode of arrival: ambulatory Limitations: no limitations History of Present Illness HPI Narrative: Patient presents for evaluation of left lower dental pain since last night. Pain is constant, throbbing, severe, without numerical rating. He has been taking ibuprofen without considerable improvement in his symptoms. He indicates he saw his dentist on 06/19/2025 and has a planned dental extraction of the affected tooth. When I walked into his room to evaluate him, he is currently on the phone with his dentist. She recommended patient receive oral antibiotics and pain medication. He smokes half a pack per day. No fever, chills, nausea, vomiting. Related Data Home Medications ?Medication ?Instructions ?Recorded ?Confirmed ?Last Taken ?Type atorvastatin 80 mg tablet mg 07/08/25 Unknown History carvedilol 12.5 mg tablet mg 07/08/25 Unknown History clopidogrel 75 mg tablet mg 07/08/25 Unknown History duloxetine 60 mg capsule,delayed mg PO 07/08/25 Unknown History release eplerenone 25 mg tablet mg 07/08/25 Unknown History ezetimibe 10 mg tablet mg 07/08/25 Unknown History famotidine 20 mg tablet mg 07/08/25 Unknown History isosorbide mononitrate 30 mg mg PO 07/08/25 Unknown History tablet,extended release 24 hr montelukast 10 mg tablet mg 07/08/25 Unknown History tirzepatide 10 mg/0.5 mL mg subcut 07/08/25 Unknown History subcutaneous pen injector (Mounjaro) Allergies Allergy/AdvReac Type Severity Reaction Status Date / Time Penicillins Allergy Intermediate Rash Verified 07/08/25 18:21 Review of Systems Review of Systems: CONSTITUTIONAL: Denies fever, chills, or sweats. EYES: Denies visual changes, redness, or discharge. ENT: Reports left lower dental pain. Denies rhinorrhea, congestion, sore throat, or otalgia. CARDIOVASCULAR: Denies chest pain, palpitations, or edema. RESPIRATORY: Denies cough or dyspnea. GASTROINTESTINAL: Denies abdominal pain, nausea, vomiting, or diarrhea. GENITOURINARY: Denies dysuria or hematuria. SKIN: Denies rash or itching. MUSCULOSKELETAL: Denies back pain, joint pain, or myalgia. NEUROLOGIC: Denies headache, numbness, dizziness, or weakness. PSYCHIATRIC: Denies anxiety or depression. [facility] Past Medical History Medical History Hyperlipidemia Pre-diabetes Hypertension Surgical History Surgical History No pertinent past surgical history Family History Family History Mother Family history non-contributory Social History Social History Smoking packs per day: 0.5 Smoking cigarettes per day: 10.0 Smoking status: Current every day smoker Tobacco type: cigarettes Substance use: never Gender identity (if verbalized by the patient): Male Spiritual care concerns: No Exam Narrative: GENERAL: Well-appearing, well-nourished, and in no acute distress. HEAD: Normocephalic, atraumatic. EYES: PERRLA and EOMI. ENT: Nares clear, no rhinorrhea or epistaxis. Mucous membranes moist. Oropharynx without tonsillar hypertrophy exudate or other lesions. Tooth numbers #20, 21, 22 have loss of enamel and have fractures at the base of each tooth. There is no visible or palpable abscess. Bilateral TMs pearly reyez nonbulging NECK: Supple. No adenopathy or masses. No carotid bruits or JVD CHEST: Clear to auscultation. No respiratory distress. No wheezes rales or rhonchi HEART: Regular rate and rhythm. No murmur heard. Normal peripheral pulses. ABDOMEN: Soft, nontender, nondistended, normal active bowel sounds. EXTREMITIES: Normal range of motion. No edema. SKIN: Warm, dry, no rash. NEURO: No focal deficits. Alert and oriented x3. PSYCH: Normal mood and affect. Course Course Emergency Course: This is a 75-year-old male who presented for evaluation of dental pain. His dentist recommended clindamycin and pain medication while I was in the room with him while he was talking to her on the phone. I will discharge him with clindamycin and hydrocodone. He should follow-up with his dentist. Go to the ER for worsening symptoms. Patient in agreement with plan of care. Level of Care: Express Care Visit Vital Signs Vital signs: Vital Signs Temperature 36.4 C 07/08/25 18:08 Pulse Rate 79 07/08/25 18:08 Respiratory Rate 20 07/08/25 18:08 Blood Pressure 119/72 07/08/25 18:08 Pulse Oximetry 99 07/08/25 18:08 Oxygen Delivery Room Air 07/08/25 18:08 Temperature 36.4 C 07/08/25 18:08 Pulse Rate 79 07/08/25 18:08 Respiratory Rate 20 07/08/25 18:08 Blood Pressure 119/72 07/08/25 18:08 Pulse Oximetry 99 07/08/25 18:08 Oxygen Delivery Room Air 07/08/25 18:08 Discharge Plan Discharge Clinical Impression: Dental decay Patient Disposition: Home Condition: Stable Instructions: Antibiotic Form, Toothache (ED) Patient Language: Setswana Prescriptions: New clindamycin HCl [Cleocin HCl] 300 mg capsule 300 mg PO Q6H Qty: 40 0RF No Action atorvastatin 80 mg tablet carvedilol 12.5 mg tablet isosorbide mononitrate 30 mg tablet extended release 24 hr PO clopidogrel 75 mg tablet famotidine 20 mg tablet montelukast 10 mg tablet eplerenone 25 mg tablet ezetimibe 10 mg tablet duloxetine 60 mg capsule,delayed release(DR/EC) PO Mounjaro 10 mg/0.5 mL pen injector SUBCUT Follow-up/Referrals: Roslyn,MD Melinda [Primary Care Provider] - Time of Disposition: 18:55
== END 2025-07-08 19:01 | disposition home or self-care (01) ==
PROVIDERS: Emergency Provider Nurse Practitioner; PCP Internal Medicine Geriatric Medicine
DX: K04.7 Periapical abscess without sinus (principal); F17.210 Nicotine dependence, cigarettes, uncomplicated; I10 Essential (primary) hypertension; R73.03 Prediabetes; E78.5 Hyperlipidemia, unspecified
CPT/HCPCS: 99213; G0463